=== PATIENT | female | born 1980 | race Caucasian/White ===

== ENCOUNTER 2018-07-31 14:31 | Inpatient (IN) | payer OTHER ==
[~2018-07-31] VITALS: Ht 154.9 cm; Wt 57.5 kg
[2018-07-31] MEDS ORDERED: XANA1TAB2 PO (14:46)
[2018-07-31] MEDS ORDERED: NS 1,000 ML IV ONE (15:45)
[2018-07-31] MEDS ORDERED: ONDANSETRON 4MG/2ML VIAL (J2405) IV ONE (15:45)
[2018-07-31 15:58] LABS: BASO % 0.1 % (0.0-1.0); HEMATOCRIT 42.8 % (36.0-47.0); HEMOGLOBIN 14.9 g/dl (12.0-15.5); LYMPH # 0.8 10^3/uL (1.5-4.5); MEAN CORPUSCULAR HEMOGLOBIN 33.3 pg (27.0-33.0); MEAN CORPUSCULAR HGB CONC 34.8 g/dl (32.0-36.5); MEAN CORPUSCULAR VOLUME 95.5 fl (80.0-96.0); MONO # 0.2 10^3/uL (0.0-0.8); MONO % 1.7 % (0.0-5.0); NEUTROPHILS # 8.1 10^3/uL (1.8-7.7); NEUTROPHILS % 88.8 % (36.0-66.0); PLATELET COUNT, AUTOMATED 291 10^3/uL (150-450); RED BLOOD COUNT 4.48 10^6/uL (4.00-5.40); WHITE BLOOD COUNT 9.2 10^3/uL (4.0-10.0)
[2018-07-31 16:33] LABS: HCG, SERUM QUALITATIVE NEGATIVE (NEGATIVE)
[2018-07-31 16:37] LABS: ALBUMIN 3.8 GM/DL (3.2-5.2); ALT/SGPT 22 U/L (12-78); BILIRUBIN,DIRECT 0.1 MG/DL (0.0-0.2); BILIRUBIN,TOTAL 0.5 MG/DL (0.2-1.0); BLOOD UREA NITROGEN 13 MG/DL (7-18); CALCIUM LEVEL 8.8 MG/DL (8.5-10.1); CARBON DIOXIDE LEVEL 20 MEQ/L (21-32); CHLORIDE LEVEL 107 MEQ/L (98-107); CK-MB VALUE MASS < 1.0 NG/ML (<3.6); CPK CREATINE PHOSPHOKINASE 55 U/L (26-192); CREATININE FOR GFR 0.71 MG/DL (0.55-1.30); GLOMERULAR FILTRATION RATE > 60.0 (>60); GLUCOSE, FASTING 128 MG/DL (70-100); LIPASE 188 U/L (73-393); MB/CK RELATIVE INDEX 1.82 (< OR =4); POTASSIUM SERUM 3.9 MEQ/L (3.5-5.1); SODIUM LEVEL 141 MEQ/L (136-145); TROPONIN I < 0.02 NG/ML (< 0.10)
[2018-07-31] MEDS ORDERED: PROMETHAZINE INJ 25 MG/ML VIAL (J2550) IV ONE (17:00)
[2018-07-31] MEDS ORDERED: METOCLOPRAMIDE INJ 10MG/2ML VIAL (J2765) IV ONE (19:45)
[2018-07-31] MEDS ORDERED: ISOVUE-370 76% 100ML VIAL (Q9967) As Ordered ONE (20:56)
[2018-07-31 21:21] LABS: AMPHETAMINES LEVEL URINE NEGATIVE (NEGATIVE); BARBITURATES URINE NEGATIVE (NEGATIVE); BENZODIAZEPINES URINE POSITIVE (NEGATIVE); CANNABINOIDS URINE POSITIVE (NEGATIVE); COCAINE METABOLITE URINE NEGATIVE (NEGATIVE); METHADONE URINE NEGATIVE (NEGATIVE); OPIATES URINE NEGATIVE (NEGATIVE); PHENCYCLIDINE URINE NEGATIVE (NEGATIVE)
[2018-07-31] MEDS ORDERED: ALPR0.5T3 PO (21:22)
[2018-07-31] MEDS ORDERED: ONDA4TAB5 PO (21:22)
[2018-07-31] MEDS ORDERED: HAIR1CHW2 PO (21:22)
--- NOTE | 2018-07-31 21:57 | REPVR ---
EXAM: CT Abdomen and Pelvis With Contrast EXAM DATE/TIME: 07/31/2018 9:06 PM CLINICAL HISTORY: 38 years old, female; Pain; Abdominal pain; Generalized; Additional info: Intractable vomiting; Intermittent pain TECHNIQUE: Axial computed tomography images of the abdomen and pelvis with intravenous contrast. All CT scans at this facility use at least one of these dose optimization techniques: automated exposure control; mA and/or kV adjustment per patient size (includes targeted exams where dose is matched to clinical indication); or iterative reconstruction. Coronal and sagittal reformatted images were created and reviewed. CONTRAST: 100 ml of ISOVUE 370 administered intravenously. COMPARISON: No relevant prior studies available. FINDINGS: Lower thorax: Clear lung bases. ABDOMEN: Liver: Normal appearing liver. Gallbladder and bile ducts: Surgical clips at the gallbladder fossa. The patient is post cholecystectomy. Pancreas: Normal pancreas. Spleen: Normal spleen. Adrenals: Normal adrenal glands. Kidneys and ureters: Normal kidneys. Stomach and bowel: The cecum is in the right pelvis. Normal appearing small bowel. Appendix: The appendix appears within the range of normal. PELVIS: Bladder: Normal urinary bladder. Reproductive: There is an IUD within the endometrial cavity of the uterus. There is a 1.8 CM collapsing cyst left ovary. 2 cm dominant cyst right ovary. ABDOMEN and PELVIS: Intraperitoneal space: There is no evidence of pneumoperitoneum. There is a small amount of free fluid within the pelvis. There is no evidence of free fluid in the abdomen. Bones/joints: No acute fracture. No dislocation. Soft tissues: Unremarkable. Vasculature: There is opacification of the SMV and opacification of the SMA. There is opacification of the aorta which appears intact and normal in size. Lymph nodes: There is no evidence of lymphadenopathy. IMPRESSION: 1.8 CM enhancing collapsing cyst left ovary. Trace fluid within the pelvis. Electronically signed by: Blake Cuba On 07/31/2018 21:57:06 PM
[2018-07-31] MEDS: NS 1,000 ML IV SCH (22:15)
[2018-07-31 22:28] LABS: URINE PREG TEST NEGATIVE (NEGATIVE)
--- NOTE | 2018-07-31 22:43 | HPEPDOC ---
[facility] Medical History & Physical Date of Admission Jul 31, 2018 Primary Care Physician: A Other Provider Dictating/admitting Judy Rene M.D. Attending Physician: BONILLA BATRES MD History and Physical CHIEF COMPLAINT: Nausea and vomiting 3 days HISTORY OF PRESENT ILLNESS: Patient is 38-year-old female with unknown medical history. No PCP. Presents with nausea and vomiting for the past 3 days. She describes vomitus contents initially continue ingested food and then became wate ry and more bilious now. She denies any blood. She denies any fever, no chills. She is sexually active with her , though with IUD for contraception. She was accompanied with her and reported that this has been going on intermittently and this is not her first episode. At interview, patient gives a positive history of use of cannabinoids. Denies illicit drugs, indulges occasionally in alcohol, smoke cigarettes, half a pack a day since age 14. Since her symptoms are unabating she decided to seek further medical attention. She denies any recent sick contacts. She denies any relation with recently ingested new foods. No change in her urinary habits. She denies any cough, shortness of breath, chest pain or palpitations. She denies any feelings of dizziness or headaches. PAST MEDICAL HISTORY: None PAST SURGICAL HISTORY: None SOCIAL HISTORY: Lives with in [place] has a son. Indulges occasionally in alcohol, smoke cigarettes, half a pack a day since age 14. Uses cannabinoids. FAMILY HISTORY: Father: Biological father unknown Mother: Cancer in maternal relation ALLERGIES: Please see below. REVIEW OF SYSTEMS: 12 point review of systems negative other than that described in the body of HPI HOME MEDICATIONS: Please see below. PHYSICAL EXAMINATION: VITAL SIGNS: Temperature 98.5, pulse 63, respiratory rate 16, blood pressure 145, pulse oximetry 100% on room air. GENERAL APPEARANCE: Patient seen, lying calmly in bed, not in any apparent distress. She is not pale, anicteric and afebrile HEENT: Atraumatic. Neck: Supple. LUNGS: Clear to auscultation bilaterally. CARDIOVASCULAR: S1 and 2 heard, no murmurs, rubs or gallops. ABDOMEN: Obese, soft, not tender, not distended. Bowel sounds normoactive. MUSCULOSKELETAL: Apparently within normal limits. EXTREMITIES: No pedal edema, 2+ bilateral pedal pulses noted. NEUROLOGICAL: Awake, alert, oriented 3. PSYCHIATRIC: Normal affect LABORATORY DATA: See below. IMAGING: None, will ask for CT abdomen without contrast EKG: Normal sinus rhythm MICROBIOLOGY: Please see below. ASSESSMENT: 38-year-old female with a known medical history. Comes in complaining of 3 days of nausea and vomiting. Exam is unremarkable, labs also unremarkable. EKG normal sinus rhythm. Patient gives a history of cannabinoids use, last use was yesterday. DIAGNOSIS: 1. Gastritis, etiology unknown, likely related to cannabinoids use. Will rule out . . PLAN: 1. I will admit patient to the medical floors under care of Dr. Batres. 2. We'll continue normal saline 100 mils per hour. 3. Will ask for CT abdomen, GI panel, U tox screen and test. 4. GI prophylaxis. Will hold pantoprazole for now until test result is obtained. 5. Patient will continue with IV Zofran 4 mg every 8 hours 6. DVT prophylaxis, TEDs. 7. Further treatment will be per patient's clinical course. Vital Signs Vital Signs Date Time Temp Pulse Resp B/P (MAP) Pulse Ox O2 Delivery O2 Flow Rate FiO2 07/31/18 19:35 98.5 63 16 145/77 (99) 100 Room Air Laboratory Data Labs 24H Laboratory Tests 2 07/31/18 15:51: Immature Granulocyte % (Auto) 0.4, White Blood Count 9.2, Red Blood Count 4.48, Hemoglobin 14.9, Hematocrit 42.8, Mean Corpuscular Volume 95.5, Mean Corpuscular Hemoglobin 33.3H, Mean Corpuscular Hemoglobin Concent 34.8, Red Cell Distribution Width 12.6, Platelet Count 291, Neutrophils (%) (Auto) 88.8H, Lymphocytes (%) (Auto) 9.0L, Monocytes (%) (Auto) 1.7, Eosinophils (%) (Auto) 0.0, Basophils (%) (Auto) 0.1, Neutrophils # (Auto) 8.1H, Lymphocytes # (Auto) 0.8L, Monocytes # (Auto) 0.2, Eosinophils # (Auto) 0.0, Basophils # (Auto) 0.0, Nucleated Red Blood Cells % (auto) 0.0, Anion Gap 14, Glomerular Filtration Rate > 60.0, Calcium Level 8.8, Aspartate Amino Transf (AST/SGOT) 13, Alanine Aminotransferase (ALT/SGPT) 22, Alkaline Phosphatase 52, Total Bilirubin 0.5, Direct Bilirubin 0.1, Total Creatine Kinase 55, Creatine Kinase MB < 1.0, Creatine Kinase MB Relative Index 1.82, Troponin I < 0.02, Total Protein 7.0, Albumin 3.8, Albumin/Globulin Ratio 1.19, Lipase 188, Human Chorionic Gonadotropin, Qual NEGATIVE 07/31/18 15:52: Urine Color YELLOW, Urine Appearance HAZY, Urine pH 6.0, Urine Specific [place] 1.026, Urine Protein 1+H, Urine Glucose (UA) NEGATIVE, Urine Ketones 2+H, Urine Blood NEGATIVE, Urine Nitrite NEGATIVE, Urine Bilirubin NEGATIVE, Urine Urobilinogen 0.2, Urine Leukocyte Esterase NEGATIVE, Urine WBC (Auto) 1, Urine RBC (Auto) 8H, Urine Hyaline Casts (Auto) 0, Urine Bacteria (Auto) NEGATIVE, Urine Squamous Epithelial Cells 8, Urine Mucus (Auto) SMALL, Urine Sperm (Auto) 07/31/18 20:30: Urine Amphetamines Screen NEGATIVE, Urine Benzodiazepines Screen POSITIVEH, Urine Opiates Screen NEGATIVE, Urine Methadone Screen NEGATIVE, Urine Barbiturates Screen NEGATIVE, Urine Phencyclidine Screen NEGATIVE, Urine Cocaine Metabolite Screen NEGATIVE, Urine Cannabinoids Screen POSITIVEH CBC/BMP Laboratory Tests 07/31/18 15:51 Red Blood Count 4.48, Mean Corpuscular Volume 95.5, Mean Corpuscular Hemoglobin 33.3 H, Mean Corpuscular Hemoglobin Concent 34.8, Red Cell Distribution Width 12.6, Neutrophils (%) (Auto) 88.8 H, Lymphocytes (%) (Auto) 9.0 L, Monocytes (%) (Auto) 1.7, Eosinophils (%) (Auto) 0.0, Basophils (%) (Auto) 0.1, Neutrophils # (Auto) 8.1 H, Lymphocytes # (Auto) 0.8 L, Monocytes # (Auto) 0.2, Eosinophils # (Auto) 0.0, Basophils # (Auto) 0.0 Home Medications Scheduled (Hair/Skin/Nails 1250-7.5-7.5 Mcg-mg-Unt) 1 Chw Chw, 1 CHW PO DAILY Scheduled PRN Alprazolam (Alprazolam) 0.5 Mg Tab, 0.5 MG PO BID PRN for ANXIETY Ondansetron HCl (Ondansetron HCl) 4 Mg Tab, 4 MG PO BID PRN for NAUSEA Allergies Coded Allergies: No Known Allergies (Unverified , 07/31/18) JUDY RENE MD Jul 31, 2018 22:43
[2018-08-01 00:05] VITALS: BP 144/76
[2018-08-01] MEDS: ONDANSETRON 4MG/2ML VIAL (J2405) IV PRN ×3 (00:22→19:15)
[2018-08-01 06:00] VITALS: BP 149/71
[2018-08-01 06:39] LABS: HEMATOCRIT 43.9 % (36.0-47.0); MEAN CORPUSCULAR HGB CONC 34.2 g/dl (32.0-36.5); MEAN CORPUSCULAR VOLUME 96.7 fl (80.0-96.0); PLATELET COUNT, AUTOMATED 279 10^3/uL (150-450); RED BLOOD COUNT 4.54 10^6/uL (4.00-5.40); WHITE BLOOD COUNT 9.4 10^3/uL (4.0-10.0)
[2018-08-01 07:09] LABS: ALBUMIN 3.7 GM/DL (3.2-5.2); ALT/SGPT 21 U/L (12-78); BILIRUBIN,TOTAL 0.3 MG/DL (0.2-1.0); BLOOD UREA NITROGEN 6 MG/DL (7-18); CARBON DIOXIDE LEVEL 24 MEQ/L (21-32); CHLORIDE LEVEL 106 MEQ/L (98-107); CREATININE FOR GFR 0.63 MG/DL (0.55-1.30); GLOMERULAR FILTRATION RATE > 60.0 (>60); GLUCOSE, FASTING 143 MG/DL (70-100); SODIUM LEVEL 140 MEQ/L (136-145); TOTAL PROTEIN 7.4 GM/DL (6.4-8.2)
[2018-08-01] MEDS: NS 1,000 ML IV SCH ×2 (08:15→20:24)
[2018-08-01] MEDS: HEPARIN SOD (PORCINE) 5000 UNITS/ML VIAL SQ SCH ×2 (08:38→20:23)
[2018-08-01] MEDS ORDERED: PANTOPRAZOLE 40MG INJ (PROTONIX) (C9113) IV SCH (09:00)
[2018-08-01] MEDS ORDERED: INFLUENZA QUADRIVALENT PF VACCINE 0.5ML SYRINGE (90686) IM ONE (09:00)
[2018-08-01 10:44] LABS: CK-MB VALUE MASS < 1.0 NG/ML (<3.6); CPK CREATINE PHOSPHOKINASE 28 U/L (26-192); MB/CK RELATIVE INDEX 3.57 (< OR =4); TROPONIN I < 0.02 NG/ML (< 0.10)
[2018-08-01 14:00] VITALS: BP 139/87
[2018-08-01] MEDS ORDERED: FLUCONAZOLE 100 MG TAB PO ONE (14:00)
[2018-08-01] MEDS: PANTOPRAZOLE 40MG INJ (PROTONIX) (C9113) IV SCH (14:28)
[2018-08-01] MEDS: PROMETHAZINE INJ 25 MG/ML VIAL (J2550) IV PRN ×2 (14:29→23:33)
[2018-08-01 15:48] LABS: CHLAMYDIA DNA AMPLIFICATION NEGATIVE (NEGATIVE); GC DNA AMPLIFICATION NEGATIVE (NEGATIVE)
--- NOTE | 2018-08-01 16:25 | IPN ---
DATE: 08/01/2018 SUBJECTIVE: The patient is seen and examined. Continued to have nausea and vomiting with any oral intake. Denies any chest pain, pressure or discomfort. Denies any abdominal pain. Had one spike of temperature. VITAL SIGNS: Maximum temperature (T-max) 100.7, T-current 99.4, pulse 61, respiratory rate 19, blood pressure 139/87, pulse oximetry 100% on room air. LABORATORY DATA: WBC 9.4, hemoglobin and hematocrit 15/43.9, platelets 279. Chemistry: Sodium 140, potassium 4, chloride 106, bicarbonate 24, BUN 6, creatinine 0.6, cardiac enzymes negative time two. test negative. GC and Chlamydia negative. Urine toxicology positive for benzodiazepine and cannabinoid. PHYSICAL EXAMINATION: GENERAL: Patient alert, comfortable, in no acute distress. HEENT: Normocephalic, atraumatic. PULMONARY: Bilaterally clear. CARDIAC: Regular, S1, S2. ABDOMEN: Soft, nontender, positive bowel sounds. EXTREMITIES: No clubbing, cyanosis, or edema. ASSESSMENT AND PLAN: This is a 38-year-old female patient with no significant past medical history but does report for the past 10 years the patient has intermittent episodes of nausea and vomiting, presented with nausea and vomiting. 1. Nausea and vomiting. Possible gastritis versus cannabinoid-induced cyclic vomiting syndrome. The patient has no history of diabetes. test has been negative. Pelvic examination is done. Gonorrhea (GC) and Chlamydia has been negative. Zofran, Phenergan, IV fluids have been ordered. We will consider consulting gastroenterology or general surgery for possible esophagogastroduodenoscopy (EGD) if the patient does not improve. Clear liquid diet. 2. Vaginal candidiasis. One dose of Diflucan has been given. 3. Gastroesophageal reflux disease (GERD). Continue proton pump inhibitor (PPI). 4. Deep vein thrombosis (DVT) prophylaxis. Heparin subcutaneous. DISPOSITION: Pending clinical improvement. Consider further workup if not improved.
[2018-08-01 22:00] VITALS: BP 159/89
[2018-08-02] MEDS: ONDANSETRON 4MG/2ML VIAL (J2405) IV PRN ×2 (02:05→12:07)
[2018-08-02] MEDS: NS 1,000 ML IV SCH (05:08)
[2018-08-02] MEDS: PROMETHAZINE INJ 25 MG/ML VIAL (J2550) IV PRN (05:08)
[2018-08-02 06:00] VITALS: BP 154/86
[2018-08-02 06:11] LABS: HEMATOCRIT 41.5 % (36.0-47.0); HEMOGLOBIN 14.3 g/dl (12.0-15.5); MEAN CORPUSCULAR HEMOGLOBIN 32.3 pg (27.0-33.0); MEAN CORPUSCULAR HGB CONC 34.5 g/dl (32.0-36.5); MEAN CORPUSCULAR VOLUME 93.7 fl (80.0-96.0); PLATELET COUNT, AUTOMATED 284 10^3/uL (150-450); RED BLOOD COUNT 4.43 10^6/uL (4.00-5.40); WHITE BLOOD COUNT 9.5 10^3/uL (4.0-10.0)
[2018-08-02 06:36] LABS: BLOOD UREA NITROGEN 6 MG/DL (7-18); CALCIUM LEVEL 8.3 MG/DL (8.5-10.1); CARBON DIOXIDE LEVEL 25 MEQ/L (21-32); CHLORIDE LEVEL 102 MEQ/L (98-107); CREATININE FOR GFR 0.58 MG/DL (0.55-1.30); GLOMERULAR FILTRATION RATE > 60.0 (>60); GLUCOSE, FASTING 125 MG/DL (70-100); MAGNESIUM LEVEL 1.9 MG/DL (1.8-2.4); POTASSIUM SERUM 3.1 MEQ/L (3.5-5.1); SODIUM LEVEL 137 MEQ/L (136-145)
[2018-08-02] MEDS: KCL 40MEQ in NS 1000ML 1,000 ML IV SCH ×2 (08:22→17:11)
[2018-08-02] MEDS: PANTOPRAZOLE 40MG INJ (PROTONIX) (C9113) IV SCH (08:22)
[2018-08-02] MEDS: HEPARIN SOD (PORCINE) 5000 UNITS/ML VIAL SQ SCH ×2 (08:22→21:22)
[2018-08-02 09:00] LABS: ALBUMIN 3.4 GM/DL (3.2-5.2); ALT/SGPT 42 U/L (12-78); BILIRUBIN,DIRECT 0.3 MG/DL (0.0-0.2); BILIRUBIN,TOTAL 0.8 MG/DL (0.2-1.0); C REACTIVE PROTEIN QUANTITATIV < 0.30 MG/DL (0.00-0.30); TOTAL PROTEIN 6.7 GM/DL (6.4-8.2)
--- NOTE | 2018-08-02 09:20 | REP ---
Chest two views HISTORY: Cough Comparison: None The lungs are clear. The heart is normal in size. The pulmonary vasculature is normal in appearance. The bony structure is intact. IMPRESSION: No acute disease. Electronically Signed by Chaz Nova MD 08/02/2018 09:11 A
[2018-08-02] MEDS: ALPRAZolam 0.5 MG TAB PO PRN ×2 (13:27→22:18)
[2018-08-02 14:00] VITALS: BP 150/81
--- NOTE | 2018-08-02 14:11 | REP ---
Right upper quadrant sonography: History: Right upper quadrant pain, fever, nausea and vomiting. Comparison CT study March 31, 2019. Findings: Scanning through right upper quadrant of the abdomen is performed. The gallbladder is surgically absent. Common bile duct is normal measuring 0.6 cm in greatest diameter. There is a 1.2 x 0.7 x 0.8 cm hemangioma near the periportal region of the liver. No other focal liver lesion is seen. No pancreatic abnormality is observed. There is no evidence of ascites or right renal abnormality. The right kidney measures 12.1 x 5.1 x 5.4 cm. Impression: A 1.2 cm hemangioma in the liver. Post cholecystectomy. Otherwise negative. Electronically Signed by Hay Benavides MD 08/02/2018 07:39 P
[2018-08-02] MEDS ORDERED: LR 1,000 ML IV ONE (14:45)
[2018-08-02] MEDS: ACETAMINOPHEN TAB 650MG DOSE (2X325MG) PO PRN ×2 (14:58→19:49)
[2018-08-02 15:03] LABS: BLOOD UREA NITROGEN 7 MG/DL (7-18); CALCIUM LEVEL 8.8 MG/DL (8.5-10.1); CARBON DIOXIDE LEVEL 23 MEQ/L (21-32); CHLORIDE LEVEL 103 MEQ/L (98-107); GLOMERULAR FILTRATION RATE > 60.0 (>60); GLUCOSE, FASTING 100 MG/DL (70-100); POTASSIUM SERUM 3.9 MEQ/L (3.5-5.1); SODIUM LEVEL 136 MEQ/L (136-145)
[2018-08-02] MEDS: METOCLOPRAMIDE INJ 10MG/2ML VIAL (J2765) IV SCH ×2 (15:55→22:18)
--- NOTE | 2018-08-02 17:53 | IPNPDOC ---
Text Note Date of Service The patient was seen on 08/02/18. NOTE Continue to reported n/v. fever reported by nursing stable. n/v improved with hot shower. cough productive of clear sputum PHYSICAL EXAMINATION: GENERAL: Patient alert, comfortable, in no acute distress. HEENT: Normocephalic, atraumatic. PULMONARY: Bilaterally clear. CARDIAC: Regular, S1, S2. ABDOMEN: Soft, nontender, positive bowel sounds. EXTREMITIES: No clubbing, cyanosis, or edema. ASSESSMENT AND PLAN: This is a 38-year-old female patient with no significant past medical history but does report for the past 10 years the patient has intermittent episodes of nausea and vomiting, presented with nausea and vomiting. 1. Nausea and vomiting. Possible gastritis versus cannabinoid-induced cyclic vomiting syndrome. The patient has no history of diabetes. test has been negative. Gonorrhea (GC) and Chlamydia has been negative. reglan , IV fluids have been ordered. GI consulted for possible EGD. Clear liquid diet. 2. fever of unknown origin. CRP neg, no WBC elevation. possible 2/2 to viral bronchitis. cxr neg, f/u cultures. will monitor,. respiratory panel neg. 3. Vaginal candidiasis. One dose of Diflucan has been given. 4. Gastroesophageal reflux disease (GERD). Continue proton pump inhibitor (PPI). 5. Deep vein thrombosis (DVT) prophylaxis. Heparin subcutaneous. DISPOSITION: Pending clinical improvement. GI consult RUMA,Kameron, I+O VS, Kameron, I+O Laboratory Tests 08/02/18 05:44 Red Blood Count 4.43, Mean Corpuscular Volume 93.7, Mean Corpuscular Hemoglobin 32.3, Mean Corpuscular Hemoglobin Concent 34.5, Red Cell Distribution Width 12.3 08/02/18 14:09 Calcium Level 8.8 Vital Signs Date Time Temp Pulse Resp B/P (MAP) Pulse Ox O2 Delivery O2 Flow Rate FiO2 08/02/18 14:00 100.0 61 18 150/81 (104) 100 Room Air I&O- Last 24 Hours up to 6 AM 08/02/18 05:59 Intake Total 160 ml Output Total 2300 ml Balance -2140 ml BONILLA BATRES MD Aug 02, 2018 17:53
--- NOTE | 2018-08-02 18:46 | CR.PDOC ---
General Date of Consultation: Aug 02, 2018 Referring Provider: BONILLA BATRES MD Consultation Primary physician/ hospitalist: Dr. Batres Reason for consult: Persistent vomiting. HPI: 38-year-old female patient with no chronic medical comorbidities, h/o cholecystectomy 9 years ago, admitted to hospital for persistent nausea and vomiting and unable to tolerate anything by mouth. GI was consulted for the same. Patient reports having cyclical episodes of nausea with vomiting, no precipitating event, episodes happening at least 2-3 times every year for the past 9 years, and recently worsening with at least 1-2 episodes every month. Patient reports the episode started with severe nausea and recurrent vomiting and inability to tolerate anything by mouth, which lasts for 3-7 days. Patient does report use of marijuana for the past 9 years but reports that the nausea started before that. (Patient is not clear about the amount of marijuana usage). Patient also reports associated abdominal pain from recurrent vomiting. Off note: Patient was noted to have episodes of fever during this admission, and she reports having cough with white phlegm and history of dyspareunia. ( prior h/o IUD). Pertinent negative GI symptoms: Patient denies diarrhea, early satiety or unintentional weight loss. No history of hematemesis, melena or hematochezia. Patient reports regular bowel movements. Review of Systems: GI: as stated above CVS: No chest pain, No palpitations, No leg swelling. RS: No Shortness of breath, No Wheezing, has cough with white phlegm. DOUBLE BACK OPERATOR: No dizziness, No motor weakness, No sensory problems Hematology: No bruising, No gum bleeding, Musculoskeletal: No joint pain, ambulating well. Skin: No rash : No hematuria, No burning sensation of the urine ENT: No ear discharge/ pain, No dysphagia. Eyes: No photophobia. Home medications: reviewed. Antithrombotic agents -none Medical h/o: As above. Surgical h/o: None on abdomen. Social h/o: Alcohol-denies, tobacco-denies, IVDA/ drugs-denies IVDA, but uses marijuana everyday.. Family h/o of GI cancers -denies any cancer. Prior Endoscopies: --- EGD -had many years ago, normal as per patient. --- Colonoscopy -none Prior GI evaluation: None in [facility] Exam: Vitals: reviewed General: Alert and oriented x 3, not in distress HEENT: NO pallor, no icterus. Normal oropharynx, NO cervical lymph nodes. Chest: symmetric with bilateral clear air entry, CVS: S1, S2 heard, normal, no murmurs . Abdomen: non-distended, no surgical scars, soft, non-tender, no palpable masses, normal bowel sounds heard. Rectal exam: Patient refused . Extremities: no pedal edema, pulses palpable. DOUBLE BACK OPERATOR: no focal motor or sensory deficits. Moves all extremities Skin: no rash. Labs: reviewed. Imaging tests: reviewed ( Note: As per hospitalist -- patient had pelvic exam - noted whitish discharge but negative GC and No signs of PID). Impression: -- Recurrent cyclical episodes of vomiting with nausea and abdominal pain relat ed to vomiting -- DDx-- Likely Marijuana related emesis syndrome ( patient reported vomiting getting better with hot showers), vs Idiopathic gastroparesis vs PUD. -- Fever of unknown origin -- s/p CT abdomen - no intraabdominal pathology and US abdomen 1.2 cm liver hemangioma, normal CBD , patient having cough and h/o Dyspareunia -- DDx-- unlikely GI source of sepsis r/o Bronchitis vs PID/UTI. Recommendations: - Patient educated about the test results, possible differential diagnoses and All questions answered. - Septic work up as per primary team. (As per discussion with Hospitalist patient already being worked up for the above). - IV hydration - NPO or clear liquid diet as tolerated for now and keep NPO tomorrow for planned procedure. - Give IV reglan 1-2 times daily. - Continue IV Pantoprazole for now. - Will schedule for EGD tomorrow to evaluate for PUD or gastric outlet obstruction. - The procedure, indications, risks (bleeding, perforation, infection, hypotension, respiratory depression, allergy, need for endotracheal intubation, surgery, colostomy, cardiac arrest, even ), benefits, limitations (e.g., missing a lesion), and all other alternatives (including no intervention) were explained to the patient who understood and agreed for the procedure. Plan of care discussed with patient and primary team. Patient verbalized understanding and agreed with the plan. Allergies Coded Allergies: No Known Allergies (Unverified , 07/31/18) Home Medications Scheduled (Hair/Skin/Nails 1250-7.5-7.5 Mcg-mg-Unt) 1 Chw Chw, 1 CHW PO DAILY, (Reported) Scheduled PRN Alprazolam (Alprazolam) 0.5 Mg Tab, 0.5 MG PO BID PRN for ANXIETY, (Reported) Ondansetron HCl (Ondansetron HCl) 4 Mg Tab, 4 MG PO BID PRN for NAUSEA, (Reported) JELLY PATEL MD Aug 02, 2018 18:46
[2018-08-02] MEDS ORDERED: SUMAtriptan SUCCINATE 25 MG TAB PO ONE (21:00)
[2018-08-02 22:00] VITALS: BP 155/86
[2018-08-03 06:00] VITALS: BP 96/62
[2018-08-03 06:27] LABS: HEMATOCRIT 45.3 % (36.0-47.0); HEMOGLOBIN 15.9 g/dl (12.0-15.5); MEAN CORPUSCULAR HEMOGLOBIN 33.1 pg (27.0-33.0); MEAN CORPUSCULAR HGB CONC 35.1 g/dl (32.0-36.5); MEAN CORPUSCULAR VOLUME 94.4 fl (80.0-96.0); PLATELET COUNT, AUTOMATED 300 10^3/uL (150-450); WHITE BLOOD COUNT 8.3 10^3/uL (4.0-10.0)
[2018-08-03] MEDS: ACETAMINOPHEN TAB 650MG DOSE (2X325MG) PO PRN ×2 (06:38→20:55)
[2018-08-03] MEDS: METOCLOPRAMIDE INJ 10MG/2ML VIAL (J2765) IV SCH ×2 (06:39→18:08)
[2018-08-03] MEDS: ALPRAZolam 0.5 MG TAB PO PRN ×2 (06:39→20:55)
[2018-08-03 06:40] LABS: HEMOGLOBIN A1c 5.4 %
[2018-08-03] MEDS: KCL 40MEQ in NS 1000ML 1,000 ML IV SCH ×2 (06:41→13:11)
[2018-08-03 06:49] LABS: BLOOD UREA NITROGEN 6 MG/DL (7-18); CALCIUM LEVEL 8.4 MG/DL (8.5-10.1); CARBON DIOXIDE LEVEL 25 MEQ/L (21-32); CHLORIDE LEVEL 102 MEQ/L (98-107); CREATININE FOR GFR 0.59 MG/DL (0.55-1.30); GLOMERULAR FILTRATION RATE > 60.0 (>60); GLUCOSE, FASTING 104 MG/DL (70-100); MAGNESIUM LEVEL 2.2 MG/DL (1.8-2.4); POTASSIUM SERUM 3.7 MEQ/L (3.5-5.1); SODIUM LEVEL 136 MEQ/L (136-145)
[2018-08-03] MEDS: HEPARIN SOD (PORCINE) 5000 UNITS/ML VIAL SQ SCH ×2 (08:32→20:55)
[2018-08-03] MEDS: PANTOPRAZOLE 40MG INJ (PROTONIX) (C9113) IV SCH (08:32)
[2018-08-03] MEDS ORDERED: LIDOCAINE 2% INJ 100 MG/5 ML SDV (FOR ANES.) As Ordered ONE (12:04)
[2018-08-03] MEDS ORDERED: PROPOFOL 200 MG/20 ML VIAL As Ordered ONE (12:04)
[2018-08-03] MEDS ORDERED: fentaNYL 100 MCG/2 ML INJECTION (J3010) As Ordered ONE (12:04)
--- NOTE | 2018-08-03 12:32 | ROOR ---
Patient Name: Cheryl Tapia Procedure Date: 08/03/2018 10:36 AM Date of : 1980 Age: 38 Room: Main OR Gender: Female Note Status: Finalized Procedure: Upper GI endoscopy Indications: Persistent vomiting of unknown cause Providers: True Ron MD Referring MD: Rosita Montano Md Requesting Provider: Medicines: Monitored Anesthesia Care Complications: No immediate complications. Procedure: Pre-Anesthesia Assessment: - Prior to the procedure, a History and Physical was performed, and patient medications and allergies were reviewed. The patient is competent. The risks and benefits of the procedure and the sedation options and risks were discussed with the patient. All questions were answered and informed consent was obtained. Patient identification and proposed procedure were verified by the physician, the nurse and the anesthesiologist in the procedure room. Mental Status Examination: alert and oriented. Airway Examination: normal oropharyngeal airway and neck mobility. Respiratory Examination: clear to auscultation. CV Examination: normal. Prophylactic Antibiotics: The patient does not require prophylactic antibiotics. Prior Anticoagulants: The patient has taken no previous anticoagulant or antiplatelet agents. ASA Grade Assessment: II - A patient with mild systemic disease. After reviewing the risks and benefits, the patient was deemed in satisfactory condition to undergo the procedure. The anesthesia plan was to use monitored anesthesia care (MAC). Immediately prior to administration of medications, the patient was re-assessed for adequacy to receive sedatives. The heart rate, respiratory rate, oxygen saturations, blood pressure, adequacy of pulmonary ventilation, and response to care were monitored throughout the procedure. The physical status of the patient was re-assessed after the procedure. The Endoscope was introduced through the mouth, and advanced to the second part of duodenum. The upper GI endoscopy was accomplished without difficulty. The patient tolerated the procedure well. Findings: The examined esophagus was normal. The Z-line was regular and was found 37 cm from the incisors. Patchy mild inflammation characterized by erythema and granularity was found in the gastric body and in the gastric antrum. Biopsies were taken with a cold forceps for Helicobacter pylori testing. Verification of patient identification for the specimen was done by the physician and nurse using the patient's name, date and medical record number. Estimated blood loss was minimal. The duodenal bulb and second portion of the duodenum were normal. Biopsies for histology were taken with a cold forceps for evaluation of celiac disease. Impression: - Normal esophagus. - Z-line regular, 37 cm from the incisors. - Gastritis. Biopsied. - Normal duodenal bulb and second portion of the duodenum. Biopsied. Recommendation: - Patient has a contact number available for emergencies. The signs and symptoms of potential delayed complications were discussed with the patient. Return to normal activities tomorrow. Written discharge instructions were provided to the patient. - Advance diet as tolerated. - Continue present medications. - Await pathology results. - If Biopsy shows H. pylori will need therapy with antibiotic course.. - Return to primary care physician. True Ron MD True Ron MD 08/03/2018 12:32:18 PM This report has been signed electronically. Number of Addenda: 0 Note Initiated On: 08/03/2018 10:36 AM Estimated Blood Loss: Estimated blood loss was minimal.
[2018-08-03] MEDS ORDERED: PERCOCET 5MG/325MG TAB PO PRN (12:45)
[2018-08-03] MEDS ORDERED: ONDANSETRON 4MG/2ML VIAL (J2405) IV PRN (12:45)
[2018-08-03] MEDS ORDERED: LR 1,000 ML IV SCH (12:45)
[2018-08-03 14:00] VITALS: BP 124/78
[2018-08-03] MEDS ORDERED: metroNIDAZOLE 500 MG in APPROPRIATE DILUENT 1 EA IV SCH (14:00)
--- NOTE | 2018-08-03 17:50 | IPNPDOC ---
Text Note Date of Service The patient was seen on 08/03/18. NOTE Continue to reported n/v. fever reported by nursing. n/v improved with hot shower. cough productive of clear sputum PHYSICAL EXAMINATION: GENERAL: Patient alert, comfortable, in no acute distress. HEENT: Normocephalic, atraumatic. PULMONARY: Bilaterally clear. CARDIAC: Regular, S1, S2. ABDOMEN: Soft, nontender, positive bowel sounds. EXTREMITIES: No clubbing, cyanosis, or edema. ASSESSMENT AND PLAN: This is a 38-year-old female patient with past medical history of questionable porphyria but does report for the past 10 years the patient has intermittent episodes of nausea and vomiting, presented with nausea and vomiting. 1. Nausea and vomiting. Possible gastritis versus cannabinoid-induced cyclic vomiting syndrome vs acute intermittent porphria. The patient has no history of diabetes a1c neg. test has been negative. Gonorrhea (GC) and Chlamydia has been negative. reglan , IV fluids have been ordered. GI consulted for possible EGD. full liquid, urine study for workup of acute intermittent porphyria. gastric emptying study 2. fever of unknown origin. CRP neg, no WBC elevation. possible 2/2 to viral bronchitis. cxr neg, f/u cultures. will monitor,. respiratory panel neg. ID consulted 3. Bacterial vaginosis. Given flagy further rec as per ID. 4. Gastroesophageal reflux disease (GERD). Continue proton pump inhibitor (PPI). 5. Deep vein thrombosis (DVT) prophylaxis. Heparin subcutaneous. DISPOSITION: Pending clinical improvement. Workup for acute intermittent porphyria, gastric emptying study. ID consult. VS,Kameron, I+O VS, [place], I+O Laboratory Tests 08/03/18 06:09 Red Blood Count 4.80, Mean Corpuscular Volume 94.4, Mean Corpuscular Hemoglobin 33.1 H, Mean Corpuscular Hemoglobin Concent 35.1, Red Cell Distribution Width 12.3, Calcium Level 8.4 L Vital Signs Date Time Temp Pulse Resp B/P (MAP) Pulse Ox O2 Delivery O2 Flow Rate FiO2 08/03/18 14:00 99.4 70 21 124/78 (93) 97 Room Air I&O- Last 24 Hours up to 6 AM 08/03/18 06:00 Intake Total 1680 ml Output Total 1250 ml Balance 430 ml BONILLA BATRES MD Aug 03, 2018 17:50
--- NOTE | 2018-08-03 20:11 | CR ---
DATE OF CONSULTATION: 08/03/2018 REQUESTING PROVIDER: Dr. Rosita Montano REASON FOR CONSULTATION: Fever of unknown origin. Ms. Tapia is a very pleasant 38-year-old [place] female who has been having persistent episodes of nausea and vomiting for least 10 years, since the removal of her gallbladder. She also experiences back pain and chills as well as joint pains when these episodes occur. She states that she was hospitalized right after her gallbladder surgery for about 2 weeks due to intractable nausea and vomiting and then had another attack approximately a year later. As time has gone on, these attacks have gotten more frequent to the point where they will happen once or twice a month. They last for about 3-5 days, where she will have chills, vomiting, extreme nausea, and severe anxiety about whether or not she will throw up. This started to affect her activities of daily living. She states she can no longer go out to restaurants with her , as she is always anxious about when an attack will occur. During this present illness, she had been coughing for approximately a week, as her 2-year-old son has been coughing as well. This current attack of nausea and vomiting began 3 days ago, and her generalized achiness got so bad that she told her she could not breathe. In response, he called an ambulance, and she was brought to [facility]. She states that she has had multiple emergency room (ER) visits over the last few years, where she will go in complaining of nausea and vomiting, get medications and intravenous (IV) fluids, and then be sent home. This is the first time she has been hospitalized for this. She says that she was diagnosed with porphyria years ago. Is unsure of which type she has and does not know how she was diagnosed. She also says that she was diagnosed with H. pylori in the past and was given medication for this, which she never took. She does admit to smoking marijuana, however, says that she started smoking marijuana in order to stimulate her appetite after the cycles of nausea and vomiting began, when she started developing anxiety about eating. She also does smoke cigarettes and will binge drink on the weekends with her and their family. Her medical care has been somewhat disjointed, as she travels back and forth the [place], where she has family, while her is away on training missions. She denies any skin lesions, blistering, rashes, joint swelling, vision changes, or psychiatric symptoms besides severe anxiety about eating. REVIEW OF SYSTEMS: CONSTITUTIONAL: Positive for fevers, chills and inability to gain weight secondary to nausea and vomiting, decreased appetite. HEENT: Denies vision changes, headaches, double vision, epistaxis, runny nose, sinus pain, tinnitus or odynophagia. CARDIOVASCULAR: Denies palpitations, chest pain, orthopnea, or edema. RESPIRATORY: Positive for cough. Negative for sputum production, hemoptysis, wheezing, shortness of breath. GASTROINTESTINAL: Positive for nausea and vomiting as well as anorexia and hemorrhoids. Due to her hemorrhoid, she does admit to bright red blood per rectum on the toilet paper when she wipes, but she denies hematochezia, melena, tenesmus, or obstipation.. She denies hematemesis, diarrhea, constipation, bloating, or difficulty swallowing. She denies abdominal pain but states that her abdomen is very sensitive and uncomfortable. GENITOURINARY: Denies vaginal discharge, dysuria, hematuria, nocturia, polyuria, incontinence. She does have the Paragard IUD as contraception. MUSCULOSKELETAL: Positive for joint achiness but negative for joint swelling, decreased range of motion, or stiffness. She also admits to generalized achiness in her muscles as well. INTEGUMENTARY: Denies pruritus, rashes, dry lesions, wounds, incisions, or eczema and NEUROLOGIC: Denies any changes to sight, smell, hearing, taste, seizures, headaches, paresthesias, or numbness. PSYCHIATRIC: Positive for anxiety. Denies paranoia, anhedonia, episodes of pratibha, or changes in personality. ENDOCRINE: Denies mood swings, tremors, diarrhea, sweaty episodes, constipation, or dry skin. She also denies polydipsia or polyuria. HEMATOLOGIC: Positive for using easy bruising but denies purpura, petechiae, or easy bleeding. LYMPHATIC: Denies any new lumps or bumps anywhere. PAST MEDICAL HISTORY: 1. H. pylori. 2. Porphyria, type unknown. PAST SURGICAL HISTORY: In 2008 she had her gallbladder removed secondary to gallstones. FAMILY HISTORY: Father's side is unknown. In her mother's side of the family, she had an aunt who from pancreatic cancer at age 57. Her on uncle has had colon cancer twice, and her mother had skin cancer, type unknown. SOCIAL HISTORY: She lives with her and 2-year-old son here in [place]. As stated in history of present illness (HPI), she does binge drink alcohol on the weekends and smokes marijuana. She also smokes cigarettes, about half pack a day since the age of 14. She travels frequently and originally is from [place]. She immigrated at age 12. Her and she travel back and forth the [place] quite frequently, and she has also recently been to the [facility] [place] and [place] within the last 5 years. ALLERGIES: None. CURRENT MEDICATIONS: - metronidazole 500 mg intravenous (IV) every 12 hour - Reglan 5 mg every 12 hours IV - Xanax 0.5 mg twice a day as needed by mouth for anxiety - heparin 5000 units every 12 hours subcutaneously - Protonix 40 mg IV every 24 hours - Tylenol 650 mg every 4 hours as needed by mouth for mild pain or fever. PHYSICAL EXAMINATION: VITAL SIGNS: Temperature 99.4, pulse 70, respiratory rate 21, blood pressure 124/78, pulse oximetry 97% on room air. GENERAL: A very pleasant [place] female, sitting upright in bed in no apparent distress. HEENT: Atraumatic, normocephalic. Mucous membranes are moist. There are no ulcers inside the mouth. The patient has her own teeth, and dentition is fair. Posterior pharynx is free of exudate or erythema. NECK: No lymphadenopathy is appreciated. Neck is supple. There are no masses. LUNGS: Clear to auscultation bilaterally. No wheezes, rhonchi, or rales. HEART: Regular rate and rhythm. No murmurs, gallops, or rubs. ABDOMEN: Normoactive bowel sounds. Stretch beasley from previous are noted. She has mild discomfort to palpation of both upper quadrants, which is less with palpation of the bilateral lower quadrants. There is no suprapubic tenderness. BACK: No costovertebral angle (CVA) tenderness bilaterally. EXTREMITIES: No clubbing, cyanosis, or edema. There is no joint swelling. SKIN: The patient has some irritation from tape from her previous IV site, otherwise no bruises or rashes are noted. Skin integrity is intact. PSYCHIATRIC: The patient has a normal affect but quickly can become tearful and anxious. NEUROLOGIC: The patient is alert and oriented times four. She has no diminished sensation bilaterally. Muscle strength is 5/5 in all four extremities. There are no focal neurological deficits. Cranial nerves II-XII are grossly intact. LABORATORY DATA: CBC: WBC 8.3, hemoglobin 15.9, hematocrit 45.3, platelets 300. Chemistry: Sodium 136, potassium 3.7, chloride 102, carbon dioxide 25, BUN 6,, creatinine 0.59, fasting glucose 104, hemoglobin A1c 5.4, calcium 8.4, magnesium 2.2. Toxicology from 07/31/2018 was positive for benzodiazepines and cannabinoids. Urine from 07/31/2018 was positive for 1+ protein and 2+ glucose as well as 8 urine RBC. Serology: Negative for chlamydia, gonorrhea, and HIV Microbiology: Blood cultures times two were negative. Culture from the endocervix showed Gardnerella vaginalis. Respiratory panel negative. Sputum culture pending; however, the Gram stain showed gram-positive cocci in pairs, chains, and clusters as well as a few gram-positive rods. IMAGING STUDIES: Abdomen and pelvis CT from 07/31/2018 showed a 1.8 cm enhancing collapsing cyst on left ovary with trace fluid within the pelvis. Chest x-ray from 08/02/2018 showed no acute disease. Abdominal ultrasound from 08/02/2018 showed a 1.2 cm hemangioma in the liver post cholecystectomy, otherwise negative. ASSESSMENT AND PLAN: This is a 38-year-old [facility] female who has been having periodic fevers, chills, nausea, and back pain. She was taken to the operating room (OR) this morning by Dr. Ron for upper endoscopy. Pathology from biopsies is pending right now; however, he did find gastritis in the gastric body and antrum. We should rule out periodic fever syndrome. With the patient having an alleged history of porphyria diagnosis, we have ordered a 24-hour urine porphyrins and will workup for porphyria. I have also ordered a sedimentation rate for the morning, as the patient's C-reactive protein (CRP) was normal. Incidentally, she is not having any vaginal symptoms, so her bacterial vaginosis does not need to be treated. This was discussed with the primary care team, and Flagyl will be discontinued, as this can contribute to nausea as well. Thank you for involving us in the care of Ms. Tapia. We will continue to follow her. My faculty preceptor for this patient encounter was physically present during the encounter and was fully available. All aspects of the patient interview, examination, medical decision making process, and medical care plan development were reviewed and approved by the faculty preceptor. The faculty preceptor is aware and concurs with the plan as stated in the body of this note and will attest to such by his/her co-signature. [place]
[2018-08-03 22:00] VITALS: BP 125/72
[2018-08-04] MEDS ORDERED: metroNIDAZOLE 500 MG in APPROPRIATE DILUENT 1 EA IV SCH (02:00)
[2018-08-04 06:00] VITALS: BP 152/88
[2018-08-04] MEDS: KCL 40MEQ in NS 1000ML 1,000 ML IV SCH ×2 (06:06→12:17)
[2018-08-04] MEDS: METOCLOPRAMIDE INJ 10MG/2ML VIAL (J2765) IV SCH ×2 (06:06→21:52)
[2018-08-04 07:02] LABS: HEMATOCRIT 42.8 % (36.0-47.0); HEMOGLOBIN 15.1 g/dl (12.0-15.5); MEAN CORPUSCULAR HEMOGLOBIN 32.6 pg (27.0-33.0); MEAN CORPUSCULAR HGB CONC 35.3 g/dl (32.0-36.5); MEAN CORPUSCULAR VOLUME 92.4 fl (80.0-96.0); PLATELET COUNT, AUTOMATED 283 10^3/uL (150-450); RED BLOOD COUNT 4.63 10^6/uL (4.00-5.40); WHITE BLOOD COUNT 7.4 10^3/uL (4.0-10.0)
[2018-08-04 07:12] LABS: BLOOD UREA NITROGEN 6 MG/DL (7-18); CALCIUM LEVEL 8.5 MG/DL (8.5-10.1); CARBON DIOXIDE LEVEL 25 MEQ/L (21-32); CHLORIDE LEVEL 103 MEQ/L (98-107); CREATININE FOR GFR 0.59 MG/DL (0.55-1.30); GLOMERULAR FILTRATION RATE > 60.0 (>60); GLUCOSE, FASTING 101 MG/DL (70-100); MAGNESIUM LEVEL 2.2 MG/DL (1.8-2.4); POTASSIUM SERUM 3.7 MEQ/L (3.5-5.1); SODIUM LEVEL 135 MEQ/L (136-145)
[2018-08-04 07:23] LABS: ERYTHROCYTE SEDIMENTATION RATE 7 mm/hr (0-20)
[2018-08-04] MEDS ORDERED: ONDANSETRON 4MG/2ML VIAL (J2405) IV PRN (08:15)
[2018-08-04 09:52] LABS: IMMUNOGLOBULIN G 821 MG/DL (681-1648); IMMUNOGLOBULIN M 96.1 MG/DL (40-230)
[2018-08-04] MEDS: ACETAMINOPHEN TAB 650MG DOSE (2X325MG) PO PRN (09:57)
[2018-08-04] MEDS: ALPRAZolam 0.5 MG TAB PO PRN (10:02)
[2018-08-04] MEDS: HEPARIN SOD (PORCINE) 5000 UNITS/ML VIAL SQ SCH ×2 (12:16→21:52)
[2018-08-04] MEDS: FLUoxetine 10 MG CAP PO SCH (12:16)
[2018-08-04] MEDS: PANTOPRAZOLE 40MG INJ (PROTONIX) (C9113) IV SCH (12:17)
--- NOTE | 2018-08-04 12:34 | REP ---
GASTRIC EMPTYING STUDY: 08/04/2018 CLINICAL HISTORY: Nausea, vomiting. Long history abdominal pain and tenderness with early satiety, bloating, reflux and heartburn. Had upper endoscopy yesterday. COMPARISON: CT abdomen pelvis 07/31/2018. TECHNIQUE: The patient received 1.05 mCi technetium 99m sulfur colloid in two scrambled eggs with pulses of water. The technologist notes indicate the patient had severe headache after eating and vomited most everything she had ingested just as soon as she set up at the completion of her examination. FINDINGS: Sequential 2-minute images in anterior posterior projections for 90 minutes showed filling of the stomach and no definite peristalsis into the small intestine. I do not see visible reflux on these images. With region of interest drawn about the stomach, gastric emptying was calculated by a semi automated method. The gastric emptying at 90 minutes is 0%. The normal t-1/2 for gastric emptying is 90 minutes. IMPRESSION: 1. Profound gastroparesis or gastric outlet obstruction. No emptying of the stomach contents over 90 minutes of observation after ingesting two scrambled eggs and 12 ounces of water. No reflux observed during this period of imaging. She vomited her gastric contents after the exam was completed when she sat up. Electronically Signed by Kasi Conklin MD 08/04/2018 01:17 P
[2018-08-04 14:00] VITALS: BP 160/101
[2018-08-04] MEDS ORDERED: D5W/0.9% SODIUM CHLORIDE 1,000 ML IV ONE (16:30)
[2018-08-04] MEDS: D5W/0.9% SODIUM CHLORIDE 1,000 ML IV SCH (16:40)
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
--- NOTE | 2018-08-04 19:48 | IPNPDOC ---
Text Note Date of Service The patient was seen on 08/04/18. NOTE Continue to reported n/v. n/v improved with hot shower. Reported anxiety and agitation, abd pain PHYSICAL EXAMINATION: GENERAL: Patient alert, comfortable, in no acute distress. HEENT: Normocephalic, atraumatic. PULMONARY: Bilaterally clear. CARDIAC: Regular, S1, S2. ABDOMEN: Soft, minimum tender, no rebound no guarding, positive bowel sounds. EXTREMITIES: No clubbing, cyanosis, or edema. ASSESSMENT AND PLAN: This is a 38-year-old female patient with past medical history of questionable porphyria but does report for the past 10 years the patient has intermittent episodes of nausea and vomiting, presented with nausea and vomiting. 1. Nausea and vomiting. Possible gastritis versus cannabinoid-induced cyclic vomiting syndrome vs acute intermittent porphria. The patient has no history of diabetes a1c neg. test has been negative. Gonorrhea (GC) and Chlamydia has been negative. IV fluids have been ordered. GI consulted. EGD appreciated. H Pylori neg. full liquid, urine study for workup of acute intermittent porphyria. gastric emptying study showed sever gastroparesis, reglan improved. d/w Dr Ron 2. fever of unknown origin. CRP neg, no WBC elevation. possible 2/2 to viral bronchitis. vs acute intermittent prophyria cxr neg, f/u cultures. will monitor,. respiratory panel neg. ID consulted. workup does not show infection 3. Possible Acute intermittent porphyria Urine studies ordered. consulted Hematology Rec, high glucose loading, Hemin. further rec as per Hematology 4. Gastroesophageal reflux disease (GERD). Continue proton pump inhibitor (PPI). 5. Deep vein thrombosis (DVT) prophylaxis. Heparin subcutaneous. DISPOSITION: Pending clinical improvement. Workup for acute intermittent porphyria, Hemin ordered. VS,Fishbone, I+O VS, Fishbone, I+O Laboratory Tests 08/04/18 06:24 Red Blood Count 4.63, Mean Corpuscular Volume 92.4, Mean Corpuscular Hemoglobin 32.6, Mean Corpuscular Hemoglobin Concent 35.3, Red Cell Distribution Width 12.2, Calcium Level 8.5 Vital Signs Date Time Temp Pulse Resp B/P (MAP) Pulse Ox O2 Delivery O2 Flow Rate FiO2 08/04/18 14:00 98.1 72 18 160/101 (120) 94 1/18/19 06:00 Room Air I&O- Last 24 Hours up to 6 AM 08/04/18 06:00 Intake Total 1680 ml Output Total 750 ml Balance 930 ml BONILLA BATRES MD Aug 04, 2018 19:48
[2018-08-04 22:00] VITALS: BP 115/76
[2018-08-05] MEDS: ALPRAZolam 0.5 MG TAB PO PRN ×2 (00:02→22:18)
[2018-08-05] MEDS: D5W/0.9% SODIUM CHLORIDE 1,000 ML IV SCH (00:30)
[2018-08-05 00:32] LABS: CREATININE 24 HOUR, URINE 889.9 MG/24HR (600-1800); CREATININE, URINE 80.9 MG/DL
[2018-08-05 06:00] VITALS: BP 110/75
[2018-08-05 07:01] LABS: HEMATOCRIT 39.1 % (36.0-47.0); HEMOGLOBIN 13.8 g/dl (12.0-15.5); MEAN CORPUSCULAR HEMOGLOBIN 32.6 pg (27.0-33.0); MEAN CORPUSCULAR HGB CONC 35.3 g/dl (32.0-36.5); MEAN CORPUSCULAR VOLUME 92.4 fl (80.0-96.0); PLATELET COUNT, AUTOMATED 278 10^3/uL (150-450); RED BLOOD COUNT 4.23 10^6/uL (4.00-5.40); WHITE BLOOD COUNT 7.1 10^3/uL (4.0-10.0)
[2018-08-05 07:23] LABS: BLOOD UREA NITROGEN 4 MG/DL (7-18); CALCIUM LEVEL 8.1 MG/DL (8.5-10.1); CARBON DIOXIDE LEVEL 25 MEQ/L (21-32); CHLORIDE LEVEL 106 MEQ/L (98-107); CREATININE FOR GFR 0.53 MG/DL (0.55-1.30); GLOMERULAR FILTRATION RATE > 60.0 (>60); GLUCOSE, FASTING 118 MG/DL (70-100); POTASSIUM SERUM 3.4 MEQ/L (3.5-5.1); SODIUM LEVEL 138 MEQ/L (136-145)
[2018-08-05] MEDS: PANTOPRAZOLE 40MG INJ (PROTONIX) (C9113) IV SCH (08:26)
[2018-08-05] MEDS: METOCLOPRAMIDE INJ 10MG/2ML VIAL (J2765) IV SCH ×3 (08:26→22:18)
[2018-08-05] MEDS: HEPARIN SOD (PORCINE) 5000 UNITS/ML VIAL SQ SCH ×2 (08:26→22:03)
[2018-08-05] MEDS: FLUoxetine 10 MG CAP PO SCH (08:26)
[2018-08-05] MEDS: KCL 40MEQ IN D5/NS 1000ML 1,000 ML IV SCH ×2 (08:27→15:22)
--- NOTE | 2018-08-05 10:29 | CR ---
DATE OF CONSULTATION: 08/04/2018 This is a very pleasant 38-year-old female who was admitted to the hospital due concern for persistent nausea and vomiting. The patient had been taking marijuana for persistent nausea. Her test had been negative and she has had no known history of any problems with eating any contaminated food and no one else in the family is sick. She has had a history of gastroesophageal reflux disease and is on a proton pump inhibitor. She also has a pertinent past medical history of having porphyria and has been treated by a Dr. Yañez out of the [place] area. She has mainly been treated with intravenous glucose, but has also received Hemin, at least one time when she was unable to break a porphyria crisis. She is complaining of restlessness, problems sleeping, persistent nausea and agitation. She has intermittent low back pain as well, but no history of any hematuria. She is currently on her menses and has just started this. She has been having increasing pain with her menstrual cycles. These cyclical episodes of nausea and vomiting have been somewhat associated with her menstrual cycle in the past as well. Her current medications at this point include: - Ativan 0.5 mg p.o. b.i.d. - ondansetron 4 mg p.o. b.i.d. p.r.n. for nausea PAST SURGICAL HISTORY: None. GYNECOLOGIC HISTORY: She currently has a copper T placed for contraception. She has one son. She currently lives in [place] with her who is on active duty . She denies any alcohol or smoking cigarettes. She currently is using marijuana for cyclical pain. FAMILY HISTORY: She relates that her mother is healthy, but there are family members on her mother's side who have had cancer, unknown. ALLERGIES: She no known drug allergies. MEDICATIONS HERE (Had included): - Flagyl - fluoxetine 10 mg p.o. daily - as well as the above noted Ativan REVIEW OF SYSTEMS: She relates a headache, restlessness, inability to sleep, agitation. She has had no current visual problems, problems swallowing or decreased appetite. She has a feeling of fullness in the epigastric area. Persistent ongoing nausea, unremitting, that has not been helped too much with the marijuana use. The marijuana was used to specifically for intractable nausea. She had no current diarrhea or vaginal discharge. She is currently menstruating. She has not had any misplacement or any history of any pelvic inflammatory disease or any infection. She has a copper T that had gone out of place and replaced by her CONTROL OFF[employer]. She currently has no current joint pains. Current back pain and the back pain is mild to moderate and intermittent. Neurological: She shows restlessness. She has had no hallucinations. No current seizure disorder. PHYSICAL EXAMINATION: Vital Signs: Her weight is 57.5 kg. Her temperature is 98.1, pulse 72, respiratory rate is 18, blood pressure (BP) is 160/101 and pulse oximetry is 94. Her HEENT is normocephalic, atraumatic. PERRL. EOMI. Sclerae is otherwise white, nonicteric. Oropharynx is otherwise clear. Her neck is supple with no adenopathy. Chest is clear to auscultation and percussion. Abdomen: She has some fullness in the epigastric area. No ascites. No guarding. No rebound. Extremities: Show no cyanosis, clubbing or any edema. On her urine examination, the color is yellow, appearance is hazy, 1+ proteinuria, 2+ ketones. She has 8 RBCs and a small amount of mucus. On her drug screen, she is negative for opiates, methadone, barbiturates; positive for benzodiazepines which were given in the hospital; negative for cocaine, and is positive for cannabinoids which was anticipated. On her chemistries, her sodium is 135, potassium 3.7, chloride is 103, CO2 is 25, BUN is 6, creatinine 0.59, GFR is greater than 60, fasting glucose is 101, hemoglobin A1c is 5.4, calcium is 8.5, magnesium is 2.2. Stool for Helicobacter pylori is currently pending. Serologies: She is negative for chlamydia, HIV and gonorrhea. IMPRESSION: Acute intermittent porphyria by history with current neurological symptoms of agitation, restlessness, sleeplessness, low back pain - all consistent with AIP, but can be compounded by marijuana use as well. PLAN: To change her intravenous fluids to D5 normal saline. Monitor for any signs of hyponatremia. Monitor for any neurological symptoms. Also, patient's with acute intermittent porphyria can have exacerbation due to their menstrual cycles, which appears to be the case with her since her symptoms have been cyclical. I am recommending Hematin at 3 mg/kg/day to try for 3 days. This has been ordered through the pharmacy and will be coming to us within 24 to 48 hours. The laboratory testing warfarin is not required at this time, the patient on clinical basis and history will need to be empirically treated.
--- NOTE | 2018-08-05 12:29 | IPNPDOC ---
Date Seen The patient was seen on 08/05/18. Progress Note SUBJECTIVE: The patient is still having nausea and had emesis X 1 this am feels better since starting the [id number] OBJECTIVE PHYSICAL EXAMINATION: VITAL SIGNS: Please see below. GENERAL: [color is intact feels Ok ] HEENT: [NC AT PErrl eomi sclera white non icteric intact ] CARDIOVASCULAR: [s1 s2 appreciated no rubs gallops murmurs or heaves ]. RESPIRATORY: [clear to A&P]. ABDOMINAL: soft mihnimal distention min tenderness inthe epigastric area EXTREMITIES: no CCE NEUROLOGICAL: [less anxious today ] PSYCHOLOGICAL: [ more relaxed but still h as concerns about her illness and the management of her disease ] LABORATORY DATA, IMAGING STUDIES, MICROBIOLOGY: Please see below. Echocardiogram: . DVT prophylaxis ordered?: ASSESSMENT AND PLAN: This is a -year-old [RACE] [GENDER] with . PROBLEMS: 1. : [Porphyria IAP ]. 2. : . 3. : . DISPOSITION: The paitent will be reqwuesting her records from [facility] in [place] as well as the re cords she has at home there is no sun for the next few days so we cannot test the urine in direct sunlight which is a quick non qualitiative test to assess for porphyrin presence Reggie n needs to be acquired via a contract with the company and pharmacy and it is on Tuesday which may hold things up as well . Currently she is stable but still symtomtic ]. VS, I&O, 24H, Fishbone Vital Signs/I&O Vital Signs Date Time Temp Pulse Resp B/P (MAP) Pulse Ox O2 Delivery O2 Flow Rate FiO2 08/05/18 06:00 98.4 68 20 110/75 (87) 100 Room Air I&O- Last 24 Hours up to 6 AM 08/05/18 06:00 Intake Total 2560 ml Output Total 1500 ml Balance 1060 ml Laboratory Data 24H LABS Laboratory Tests 2 08/04/18 14:08: 08/04/18 23:54: Urine Total Volume 1100, Urine Creatinine 80.9, Urine Creatinine 24 Hour 889.9 08/05/18 06:31: Nucleated Red Blood Cells % (auto) 0.0, Anion Gap 7L, Glomerular Filtration Rate > 60.0, Blood Urea Nitrogen 4L, Creatinine 0.53L, Sodium Level 138, Potassium Level 3.4L, Chloride Level 106, Carbon Dioxide Level 25, Calcium Level 8.1L, Magnesium Level 2.0 CBC/BMP Laboratory Tests 08/05/18 06:31 Red Blood Count 4.23, Mean Corpuscular Volume 92.4, Mean Corpuscular Hemoglobin 32.6, Mean Corpuscular Hemoglobin Concent 35.3, Red Cell Distribution Width 12.2, Calcium Level 8.1 L Microbiology Microbiology 08/01/18 Blood Culture - Preliminary, Resulted No Growth after 72 hours. All specime... 08/01/18 Blood Culture - Preliminary, Resulted No Growth after 72 hours. All specime... 08/01/18 Genital Culture - Final, Complete Gardnerella Vaginalis 08/02/18 Gram Stain - Final, Complete 08/02/18 Sputum Culture - Final, Complete 08/02/18 Respiratory Virus Panel (PCR) (TANYA) - Final, Complete Antonia White MD Aug 05, 2018 12:29
[2018-08-05 14:00] VITALS: BP 122/79
--- NOTE | 2018-08-05 19:36 | IPNPDOC ---
Text Note Date of Service The patient was seen on 08/05/18. NOTE Continue to reported n/v. n/v improved with hot shower. Reported anxiety and agitation, abd pain PHYSICAL EXAMINATION: GENERAL: Patient alert, comfortable, in no acute distress. HEENT: Normocephalic, atraumatic. PULMONARY: Bilaterally clear. CARDIAC: Regular, S1, S2. ABDOMEN: Soft, minimum tender, no rebound no guarding, positive bowel sounds. EXTREMITIES: No clubbing, cyanosis, or edema. ASSESSMENT AND PLAN: This is a 38-year-old female patient with past medical history of questionable porphyria but does report for the past 10 years the patient has intermittent episodes of nausea and vomiting, presented with nausea and vomiting. 1. Nausea and vomiting. Possible gastritis versus cannabinoid-induced cyclic vomiting syndrome vs acute intermittent porphria. The patient has no history of diabetes a1c neg. test has been negative. Gonorrhea (GC) and Chlamydia has been negative. IV fluids have been ordered. GI consulted. EGD appreciated. H Pylori neg. full liquid, urine study for workup of acute intermittent porphyria. gastric emptying study showed sever gastroparesis, reglan improved. d/w Dr Ron 2. fever of unknown origin. CRP neg, no WBC elevation. possible 2/2 to viral bronchitis. vs acute intermittent prophyria cxr neg, f/u cultures. will monitor,. respiratory panel neg. ID consulted. workup does not show infection 3. Possible Acute intermittent porphyria Urine studies ordered. consulted Hematology Rec, high glucose loading fluid, Hemin. further rec as per Hematology 4. Gastroesophageal reflux disease (GERD). Continue proton pump inhibitor (PPI). 5. Deep vein thrombosis (DVT) prophylaxis. Heparin subcutaneous. DISPOSITION: Pending clinical improvement. Workup for acute intermittent porphyria, Hemin ordered. VS,Fishbone, I+O VS, Fishbone, I+O Laboratory Tests 08/05/18 06:31 Red Blood Count 4.23, Mean Corpuscular Volume 92.4, Mean Corpuscular Hemoglobin 32.6, Mean Corpuscular Hemoglobin Concent 35.3, Red Cell Distribution Width 12.2, Calcium Level 8.1 L Vital Signs Date Time Temp Pulse Resp B/P (MAP) Pulse Ox O2 Delivery O2 Flow Rate FiO2 08/05/18 14:00 99.2 84 19 122/79 (93) 99 Room Air I&O- Last 24 Hours up to 6 AM 08/05/18 06:00 Intake Total 2560 ml Output Total 1500 ml Balance 1060 ml BONILLA BATRES MD Aug 05, 2018 19:36
[2018-08-05 22:00] VITALS: BP 115/82
[2018-08-06] MEDS: KCL 40MEQ IN D5/NS 1000ML 1,000 ML IV SCH (01:11)
[2018-08-06 06:00] VITALS: BP 110/70
[2018-08-06 06:03] LABS: HEMATOCRIT 40.9 % (36.0-47.0); HEMOGLOBIN 13.8 g/dl (12.0-15.5); MEAN CORPUSCULAR HEMOGLOBIN 33.3 pg (27.0-33.0); MEAN CORPUSCULAR HGB CONC 33.7 g/dl (32.0-36.5); MEAN CORPUSCULAR VOLUME 98.8 fl (80.0-96.0); PLATELET COUNT, AUTOMATED 269 10^3/uL (150-450); RED BLOOD COUNT 4.14 10^6/uL (4.00-5.40); WHITE BLOOD COUNT 10.8 10^3/uL (4.0-10.0)
[2018-08-06 06:25] LABS: BLOOD UREA NITROGEN 4 MG/DL (7-18); CALCIUM LEVEL 8.7 MG/DL (8.5-10.1); CARBON DIOXIDE LEVEL 29 MEQ/L (21-32); CHLORIDE LEVEL 107 MEQ/L (98-107); CREATININE FOR GFR 0.72 MG/DL (0.55-1.30); GLOMERULAR FILTRATION RATE > 60.0 (>60); GLUCOSE, FASTING 110 MG/DL (70-100); POTASSIUM SERUM 4.9 MEQ/L (3.5-5.1); SODIUM LEVEL 140 MEQ/L (136-145)
[2018-08-06] MEDS: METOCLOPRAMIDE INJ 10MG/2ML VIAL (J2765) IV SCH ×3 (06:26→22:54)
[2018-08-06] MEDS: PANTOPRAZOLE 40MG INJ (PROTONIX) (C9113) IV SCH (08:48)
[2018-08-06] MEDS: HEPARIN SOD (PORCINE) 5000 UNITS/ML VIAL SQ SCH ×2 (08:48→21:05)
[2018-08-06] MEDS: FLUoxetine 10 MG CAP PO SCH (08:48)
[2018-08-06] MEDS: KCL 20MEQ IN D5/0.45NS 1000ML 1,000 ML IV SCH ×2 (08:48→17:10)
[2018-08-06 14:00] VITALS: BP 120/74
--- NOTE | 2018-08-06 14:07 | IPNPDOC ---
Text Note Date of Service The patient was seen on 08/06/18. NOTE reported hungry. no n/v this am. denied abd pain, chest pain. not fever overnight. PHYSICAL EXAMINATION: GENERAL: Patient alert, comfortable, in no acute distress. HEENT: Normocephalic, atraumatic. PULMONARY: Bilaterally clear. CARDIAC: Regular, S1, S2. ABDOMEN: Soft, minimum tender, no rebound no guarding, positive bowel sounds. EXTREMITIES: No clubbing, cyanosis, or edema. ASSESSMENT AND PLAN: This is a 38-year-old female patient with past medical history of questionable porphyria but does report for the past 10 years the patient has intermittent episodes of nausea and vomiting, presented with nausea and vomiting. 1. Nausea and vomiting. Possible gastritis versus cannabinoid-induced cyclic vomiting syndrome vs acute intermittent porphria. The patient has no history of diabetes a1c neg. test has been negative. Gonorrhea (GC) and Chlamydia has been negative. IV fluids have been ordered. GI consulted. EGD appreciated. H Pylori neg. advance diet to low residual. urine study for workup of acute intermittent porphyria. gastric emptying study showed sever gastroparesis, reglan improved. d/w Dr Ron 2. fever of unknown origin. CRP neg, no WBC elevation. possible 2/2 to viral bronchitis. vs acute intermittent prophyria cxr neg, f/u cultures. will monitor,. respiratory panel neg. ID consulted. workup does not show infection 3. Possible Acute intermittent porphyria Urine studies ordered. consulted Hematology Rec, high glucose loading fluid, Hemin. further rec as per Hematology 4. Gastroesophageal reflux disease (GERD). Continue proton pump inhibitor (PPI). 5. Deep vein thrombosis (DVT) prophylaxis. Heparin subcutaneous. DISPOSITION: Pending clinical improvement. Workup for acute intermittent porphyria, Hemin ordered. VS,Fishbone, I+O VS, Fishbone, I+O Laboratory Tests 08/06/18 05:41 Red Blood Count 4.14, Mean Corpuscular Volume 98.8 H, Mean Corpuscular Hemoglobin 33.3 H, Mean Corpuscular Hemoglobin Concent 33.7, Red Cell Distribution Width 12.5, Calcium Level 8.7 Vital Signs Date Time Temp Pulse Resp B/P (MAP) Pulse Ox O2 Delivery O2 Flow Rate FiO2 08/06/18 06:00 97.7 72 20 110/70 83 96 Room Air I&O- Last 24 Hours up to 6 AM 08/06/18 06:00 Intake Total 1520 ml Output Total 0 ml Balance 1520 ml BONILLA BATRES MD Aug 06, 2018 14:07
[2018-08-06] MEDS: ACETAMINOPHEN TAB 650MG DOSE (2X325MG) PO PRN (14:11)
[2018-08-06 21:00] VITALS: BP 138/74
[2018-08-06] MEDS: ALPRAZolam 0.5 MG TAB PO PRN (22:54)
[2018-08-07] MEDS: KCL 20MEQ IN D5/0.45NS 1000ML 1,000 ML IV SCH (04:35)
[2018-08-07 06:00] VITALS: BP 117/66
[2018-08-07 06:06] LABS: HEMATOCRIT 36.7 % (36.0-47.0); HEMOGLOBIN 12.5 g/dl (12.0-15.5); MEAN CORPUSCULAR HEMOGLOBIN 33.1 pg (27.0-33.0); MEAN CORPUSCULAR HGB CONC 34.1 g/dl (32.0-36.5); MEAN CORPUSCULAR VOLUME 97.1 fl (80.0-96.0); PLATELET COUNT, AUTOMATED 259 10^3/uL (150-450); RED BLOOD COUNT 3.78 10^6/uL (4.00-5.40); WHITE BLOOD COUNT 7.2 10^3/uL (4.0-10.0)
[2018-08-07] MEDS: METOCLOPRAMIDE INJ 10MG/2ML VIAL (J2765) IV SCH (06:26)
[2018-08-07 06:39] LABS: BLOOD UREA NITROGEN 9 MG/DL (7-18); CALCIUM LEVEL 8.3 MG/DL (8.5-10.1); CARBON DIOXIDE LEVEL 28 MEQ/L (21-32); CHLORIDE LEVEL 103 MEQ/L (98-107); CREATININE FOR GFR 0.62 MG/DL (0.55-1.30); GLOMERULAR FILTRATION RATE > 60.0 (>60); GLUCOSE, FASTING 95 MG/DL (70-100); POTASSIUM SERUM 4.4 MEQ/L (3.5-5.1); SODIUM LEVEL 138 MEQ/L (136-145)
[2018-08-07] MEDS ORDERED: REGL5TAB2 PO (08:36)
[2018-08-07] MEDS: PANTOPRAZOLE 40MG INJ (PROTONIX) (C9113) IV SCH (09:00)
[2018-08-07] MEDS: HEPARIN SOD (PORCINE) 5000 UNITS/ML VIAL SQ SCH (09:00)
[2018-08-07] MEDS: FLUoxetine 10 MG CAP PO SCH (09:30)
[2018-08-07] MEDS ORDERED: PROZ10CA7 PO (11:21)
--- NOTE | 2018-08-07 16:27 | IPNPDOC ---
Date Seen The patient was seen on 08/07/18. Progress Note SUBJECTIVE: Patient is a 38 year old who has been slowly improving wiht her GI symtpms since dextrose Iv has been administered She hs not had any episodes of emesis or abdominal pain this am PHYSICAL EXAMINATION: VITAL SIGNS: Please see below. GENERAL: [ NC at perrl eomi sclera white or clear neck supple chest clear ot A&P CV s1 s2 appreciated no murmurs Abdomen is soft non tender Ext no cce skin no rashes or lesions noted neuro is intact no numbness or tinging of the fingertips or toes noted LABORATORY DATA, IMAGING STUDIES, MICROBIOLOGY: Please see below. Echocardiogram: . DVT prophylaxis ordered?: ASSESSMENT AND PLAN: 1. : [Acute intermittent porphyria attack precipitated by menses ]. 2. : . 3. : . DISPOSITION: [I advised the patient to continue at home try to reduce stress have a low carbohydrate , high protein diet for now follow up in the outpatient department in one week We will check her porphyrin labs in the cancer center Allergies Coded Allergies No Known Allergies (Unverified07/31/18) Current Medications Acetaminophen (Tylenol Tab) 650 mg Q4HP PRN PO MILD PAIN OR FEVER Last administered on 08/06/18at 14:11; Start 07/31/18 at 22:15; Stop 08/07/18 at 13:17; Status DC Alprazolam (Xanax) 0.5 mg BID PRN PO ANXIETY Last administered on 08/06/18at 22:54; Start 08/02/18 at 13:30; Stop 08/07/18 at 13:17; Status DC Dextrose/Sodium Chloride 1,000 ml @ 125 mls/hr Q8H IV Last administered on 08/05/18at 00:30; Start 08/04/18 at 16:30; Stop 08/05/18 at 07:30; Status DC Fluoxetine HCl (PROzac) 10 mg DAILY PO Last administered on 08/07/18at 09:30; Start 08/04/18 at 09:00; Stop 08/07/18 at 13:17; Status DC Heparin Sodium (Porcine) (Heparin) 5,000 units Q12H SQ Last administered on 08/06/18at 21:05; Start 08/01/18 at 09:00; Stop 08/07/18 at 13:17; Status DC Home Med (Med Rec Complete!) ASDIRECTED XX ; Start 07/31/18 at 21:30; Stop 07/31/18 at 21:30; Status DC Lactated Ringer's 1,000 ml @ 75 mls/hr [id number] IV ; Start 08/03/18 at 12:45; Stop 08/03/18 at 13:45; Status DC Metoclopramide HCl (REGLAN INJection) 5 mg Q12H IV Last administered on 08/04/18at 06:06; Start 08/03/18 at 19:00; Stop 08/04/18 at 16:56; Status DC Metoclopramide HCl (REGLAN INJection) 5 mg Q8H IV Last administered on 08/03/18at 06:39; Start 08/02/18 at 15:00; Stop 08/03/18 at 07:16; Status DC Metoclopramide HCl (REGLAN INJection) 5 mg Q8H IV Last administered on 08/07/18at 06:26; Start 08/04/18 at 23:00; Stop 08/07/18 at 13:17; Status DC Metronidazole 500 mg/IV Miscellaneous Supplies 100 ml @ 100 mls/hr Q12H IV ; Start 08/04/18 at 02:00; Stop 08/04/18 at 02:00; Status DC Metronidazole 500 mg/IV Miscellaneous Supplies 100 ml @ 100 mls/hr Q8H IV Last administered on 08/03/18at 13:43; Start 08/03/18 at 14:00; Stop 08/03/18 at 14:15; Status DC Ondansetron HCl (ZOFRAN INJection) 4 mg Q4HP PRN IV NAUSEA OR VOMITING; Start 08/03/18 at 12:45; Stop 08/03/18 at 13:45; Status DC Ondansetron HCl (ZOFRAN INJection) 4 mg Q4HP PRN IV NAUSEA OR VOMITING Last administered on 08/04/18at 15:25; Start 08/04/18 at 08:15; Stop 08/07/18 at 13:17; Status DC Ondansetron HCl (ZOFRAN INJection) 4 mg Q8HP PRN IV NAUSEA OR VOMITING Last administered on 08/02/18at 12:07; Start 07/31/18 at 22:15; Stop 08/02/18 at 14:39; Status DC Oxycodone/ Acetaminophen (Percocet 5mg/ 325mg Tablet) 1 tab ASDIRECTED PRN PO MILD/MODERATE PAIN (PS 1-7); Start 08/03/18 at 12:45; Stop 08/03/18 at 13:45; Status DC Pantoprazole Sodium (Protonix) 40 mg Q24H IV Last administered on 08/06/18at 08:48; Start 08/01/18 at 09:00; Stop 08/07/18 at 13:17; Status DC Pantoprazole Sodium (Protonix) 40 mg Q24H IV ; Start 08/01/18 at 09:00; Status Cancel Potassium Chloride/Dextrose/ Sod Cl 1,000 ml @ 100 mls/hr Q10H IV Last administered on 08/07/18at 04:35; Start 08/06/18 at 08:00; Stop 08/07/18 at 08:36; Status DC Potassium Chloride/Sodium Chloride 1,000 ml @ 100 mls/hr Q10H IV Last administered on 08/04/18at 12:17; Start 08/02/18 at 07:11; Stop 08/04/18 at 16:23; Status DC Potassium Chloride 1,000 ml @ 125 mls/hr Q8H IV Last administered on 08/06/18at 01:11; Start 08/05/18 at 08:00; Stop 08/06/18 at 07:55; Status DC Promethazine HCl (PHENERGAN INJection) 12.5 mg Q6HP PRN IV NAUSEA Last administered on 08/02/18at 05:08; Start 08/01/18 at 09:15; Stop 08/02/18 at 15:00; Status DC Sodium Chloride 1,000 ml @ 100 mls/hr Q10H IV Last administered on 08/02/18at 05:08; Start 07/31/18 at 22:15; Stop 08/02/18 at 07:12; Status DC Laboratory Tests 08/04/18 06:24 Red Blood Count 4.63, Mean Corpuscular Volume 92.4, Mean Corpuscular Hemoglobin 32.6, Mean Corpuscular Hemoglobin Concent 35.3, Red Cell Distribution Width 12 .2, Calcium Level 8.5 08/05/18 06:31 Red Blood Count 4.23, Mean Corpuscular Volume 92.4, Mean Corpuscular Hemoglobin 32.6, Mean Corpuscular Hemoglobin Concent 35.3, Red Cell Distribution Width 12.2, Calcium Level 8.1 08/06/18 05:41 Red Blood Count 4.14, Mean Corpuscular Volume 98.8, Mean Corpuscular Hemoglobin 33.3, Mean Corpuscular Hemoglobin Concent 33.7, Red Cell Distribution Width 12.5, Calcium Level 8.7 08/07/18 05:36 Red Blood Count 3.78, Mean Corpuscular Volume 97.1, Mean Corpuscular Hemoglobin 33.1, Mean Corpuscular Hemoglobin Concent 34.1, Red Cell Distribution Width 12.5, Calcium Level 8.3 Laboratory Tests 08/06/18 05:41 Red Blood Count 4.14, Mean Corpuscular Volume 98.8 H, Mean Corpuscular Hemoglobin 33.3 H, Mean Corpuscular Hemoglobin Concent 33.7, Red Cell Distribution Width 12.5, Calcium Level 8.7 08/07/18 05:36 Red Blood Count 3.78 L, Mean Corpuscular Volume 97.1 H, Mean Corpuscular Hemoglobin 33.1 H, Mean Corpuscular Hemoglobin Concent 34.1, Red Cell Dist ribution Width 12.5, Calcium Level 8.3 L ]. all labs and meds reveiwed PFHX PSH PMHX have remained unchanged since her admission VS, I&O, 24H[facility] Vital Signs/I&O Vital Signs Date Time Temp Pulse Resp B/P (MAP) Pulse Ox O2 Delivery O2 Flow Rate FiO2 08/07/18 06:00 98.5 72 18 117/66 (83) 97 Room Air I&O- Last 24 Hours up to 6 AM 08/07/18 06:00 Intake Total 2280 ml Output Total 0 ml Balance 2280 ml Laboratory Data 24H LABS Laboratory Tests 2 08/07/18 05:36: Nucleated Red Blood Cells % (auto) 0.0, Anion Gap 7L, Glomerular Filtration Rate > 60.0, Blood Urea Nitrogen 9#, Creatinine 0.62, Sodium Level 138, Potassium Level 4.4, Chloride Level 103, Carbon Dioxide Level 28, Calcium Level 8.3L, Magnesium Level 2.0 CBC/BMP Laboratory Tests 08/07/18 05:36 Red Blood Count 3.78 L, Mean Corpuscular Volume 97.1 H, Mean Corpuscular Hemoglobin 33.1 H, Mean Corpuscular Hemoglobin Concent 34.1, Red Cell Distribution Width 12.5, Calcium Level 8.3 L Microbiology Microbiology 08/01/18 Blood Culture - Final, Complete NO GROWTH AFTER 5 DAYS 08/01/18 Blood Culture - Final, Complete NO GROWTH AFTER 5 DAYS 08/01/18 Genital Culture - Final, Complete Gardnerella Vaginalis 08/02/18 Gram Stain - Final, Complete 08/02/18 Sputum Culture - Final, Complete 08/02/18 Respiratory Virus Panel (PCR) (TANYA) - Final, Complete Antonia White MD Aug 07, 2018 16:27
--- NOTE | 2018-08-07 18:10 | DSES ---
DATE OF ADMISSION: 08/03/2018 DATE OF DISCHARGE: 08/07/2018 PRIMARY CARE PROVIDER: Jay Jay Jones MANAGER INPATIENT: Dr. Ron INFECTIOUS DISEASE: Dr. Jaylan Coombs HEMATOLOGY/ONCOLOGY: Dr. Antonia White FINAL DIAGNOSES: Nausea, vomiting, likely secondary to acute intermittent porphyria, gastritis, cyclic vomiting syndrome, gastroparesis. Fever, likely secondary to acute intermittent porphyria. Gastroesophageal reflux disease (GERD). This is a 38-year-old female patient with questionable underlying medical history of porphyria, spouse of , presented with episode of nausea, vomiting for the past 3 days. Not able to tolerate liquid or solid. Bilious vomiting, dry heaving. Denies any blood. Initially denied any fever or chills. Patient sexually active with , has an intrauterine device (IUD). Patient reported having similar episode in the past 10 years with intermittent episodes. Does use cannabinoids. Denies any other illicit drugs. Indulges alcohol occasionally. Smokes half a pack per day since age 14. Patient had workup in the past but does not know what is causing the nausea, vomiting. She is scheduled to do an esophagogastroduodenoscopy (EGD) in [place]. Denies any cough, shortness of breath, sick contact. Recent travels, stays between [place] and [place]. Feeling weak. HOSPITAL COURSE: The patient was admitted to the hospital. CT scan was done. Pelvic exam was done. Patient's hospital course was complicated with episodes of fever. Infectious disease was consulted. It was determined fever is not due to infectious etiology. EGD was done. Gastric emptying study shows severe gastroparesis. It was eventually determined that the patient's symptoms are likely consistent with acute intermittent porphyria. The patient's fluid was switched to high glucose fluids as per recommendation by hematology/oncology and pharmacy has attempted to order hemin, which is a treatment for acute intermittent porphyria. Urine studies for acute intermittent porphyria was sent. Hemin is scheduled to be arriving at the hospital on 08/07/2018. The patient's symptoms gradually improved over the weekend. The patient currently is tolerating diet. Denies any chest pain, pressure, or discomfort. Almost returning to baseline. As per hematology/oncology, Dr. White, patient likely will have further exacerbation in the near future. Pharmacy is actively trying to get application to have hemin in house so the next time the patient had exacerbation, the patient can receive the appropriate medication and patient will require high glucose fluids next time patient arrives with similar symptoms. Currently the patient is comfortable, tolerating oral, in no acute distress, ready to be discharged for further care. VITAL SIGNS: Temperature 98.5, pulse 72, respirations 18, blood pressure 117/66, pulse oximetry 97% on room air. LABORATORY: WBC 7.2, hemoglobin and hematocrit 12.5 over 36.7, platelets 259. Chemistry: Sodium 138, potassium 4.4, chloride 103, bicarbonate 28, BUN 9, creatinine 0.62. GENERAL: Patient alert, comfortable, in no acute distress. HEENT: Normocephalic, atraumatic. PULMONARY: Bilaterally clear. CARDIAC: Regular, S1, S2. ABDOMEN: Soft, nontender. Positive bowel sounds. EXTREMITIES: No clubbing, cyanosis, or edema. DISCHARGE MEDICATION: - fluoxetine 10 mg by mouth daily - Reglan 5 mg by mouth three times a day - Xanax 0.5 mg by mouth twice a day as needed - Zofran 4 mg by mouth twice a day as needed DISCHARGE INSTRUCTIONS: Please see primary care provider in 7 days. Referral from primary care provider for eye specialist, Dr. White, and gastroenterology. Further urine studies pending for acute intermittent porphyria. Please followup results with primary care provider or Dr. White. Return to the hospital if symptoms worsen. Oral hydration.
[2018-08-10 00:06] LABS: COPROPORPHYRIN I URINE 34 ug/L (Undefined); COPROPORPHYRIN I URINE 24HR 37 ug/24 hr (0-24); COPROPORPHYRIN III URINE 113 ug/L (Undefined); COPROPORPHYRIN III URINE 24HR 124 ug/24 hr (0-74); HEPTACARBOXYLPORPHYRIN UR 24HR 3 ug/24 hr (0-4); HEPTACARBOXYLPORPHYRIN URINE 3 ug/L (Undefined); HEXACARBOXYLPORPHYRIN UR 24HR <1 ug/24 hr (0-1); HEXACARBOXYLPORPHYRIN URINE <1 ug/L (Undefined); PENTACARBOXYLPORPHYRIN UR 24HR 1 ug/24 hr (0-4); PENTACARBOXYLPORPHYRIN URINE 1 ug/L (Undefined); PORPHOBILINOGEN LEVEL URINE 0.3 mg/L (0.0-2.0); UROPORPHYRIN URINE 7 ug/L (Undefined); UROPORPHYRIN URINE 24HR 8 ug/24 hr (0-24)
== END 2018-08-07 13:15 | disposition home or self-care (01) | DRG 642 ==
LOC: EDBD 14:31 → M ED 14:31 → M ED INP 22:14 → M MS5PR 08-01 → OBSVTOIN 08-03 08:03
PROVIDERS: ADMIT Hospitalist; ATTEND Hospitalist
PROC: 0DB78ZX Excision of Stomach, Pylorus, Via Natural or Artificial Opening Endoscopic, Diagnostic (ICD-10-PCS; principal; 2018-08-03 12:00)
DX: E80.21 Acute intermittent (hepatic) porphyria (principal); K29.60 Other gastritis without bleeding; F17.210 Nicotine dependence, cigarettes, uncomplicated; F12.10 Cannabis abuse, uncomplicated; G43.A0 Cyclical vomiting, in migraine, not intractable; B37.3 Candidiasis of vulva and vagina; K21.9 Gastro-esophageal reflux disease without esophagitis; K31.84 Gastroparesis; Z90.49 Acquired absence of other specified parts of digestive tract

== ENCOUNTER 2018-09-13 19:31 | Inpatient (IN) | payer OTHER ==
[~2018-09-13] VITALS: Ht 152.4 cm; Wt 54.5 kg
[~2018-09-13 19:31] MED LIST: ALPR0.5T3 PO; HAIR1CHW2 PO; ONDA4TAB5 PO; PROZ10CA7 PO; REGL5TAB2 PO; XANA1TAB2 PO
[2018-09-13] MEDS ORDERED: LORazepam 2 MG/ML VIAL (J2060) IV STA (20:11)
[2018-09-13] MEDS ORDERED: NS 1,000 ML IV ONE (20:15)
[2018-09-13] MEDS ORDERED: METOCLOPRAMIDE INJ 10MG/2ML VIAL (J2765) IV ONE (20:15)
[2018-09-13 20:23] LABS: BASO # 0.1 10^3/uL (0.0-0.2); BASO % 0.4 % (0.0-1.0); EOS % 0.1 % (0.0-3.0); HEMATOCRIT 43.4 % (36.0-47.0); HEMOGLOBIN 14.8 g/dl (12.0-15.5); LYMPH # 1.6 10^3/uL (1.5-4.5); LYMPH % 10.2 % (24.0-44.0); MEAN CORPUSCULAR HEMOGLOBIN 33.2 pg (27.0-33.0); MEAN CORPUSCULAR HGB CONC 34.1 g/dl (32.0-36.5); MEAN CORPUSCULAR VOLUME 97.3 fl (80.0-96.0); MONO # 0.5 10^3/uL (0.0-0.8); MONO % 3.1 % (0.0-5.0); NEUTROPHILS # 13.1 10^3/uL (1.8-7.7); NEUTROPHILS % 85.7 % (36.0-66.0); PLATELET COUNT, AUTOMATED 360 10^3/uL (150-450); RED BLOOD COUNT 4.46 10^6/uL (4.00-5.40); WHITE BLOOD COUNT 15.3 10^3/uL (4.0-10.0)
[2018-09-13 20:33] LABS: HCG, SERUM QUALITATIVE NEGATIVE (NEGATIVE)
[2018-09-13 20:37] LABS: ALBUMIN 4.2 GM/DL (3.2-5.2); ALT/SGPT 24 U/L (12-78); BILIRUBIN,DIRECT 0.2 MG/DL (0.0-0.2); BILIRUBIN,TOTAL 0.7 MG/DL (0.2-1.0); BLOOD UREA NITROGEN 14 MG/DL (7-18); CALCIUM LEVEL 9.3 MG/DL (8.5-10.1); CARBON DIOXIDE LEVEL 18 MEQ/L (21-32); CHLORIDE LEVEL 110 MEQ/L (98-107); CREATININE FOR GFR 0.75 MG/DL (0.55-1.30); GLOMERULAR FILTRATION RATE > 60.0 (>60); GLUCOSE, FASTING 170 MG/DL (70-100); LIPASE 221 U/L (73-393); POTASSIUM SERUM 4.1 MEQ/L (3.5-5.1); SODIUM LEVEL 141 MEQ/L (136-145); TOTAL PROTEIN 7.5 GM/DL (6.4-8.2)
[2018-09-13] MEDS ORDERED: HALOPERIDOL 5 MG/ML VIAL (J1630) IV ONE (22:00)
[2018-09-13] MEDS ORDERED: ONDANSETRON 4MG/2ML VIAL (J2405) IV ONE (22:00)
[2018-09-13] MEDS ORDERED: diphenhydrAMINE INJ 50MG/ML VIAL (J1200) IV ONE (22:00)
[2018-09-13] MEDS ORDERED: ISOVUE-370 76% 100ML VIAL (Q9967) As Ordered ONE (22:38)
--- NOTE | 2018-09-13 23:51 | REPVR ---
EXAM: CT Abdomen and Pelvis With Contrast EXAM DATE/TIME: 09/13/2018 10:35 PM CLINICAL HISTORY: 38 years old, female; Pain; Abdominal pain; Generalized; Additional info: Intractable vomiting, leukocytosis TECHNIQUE: Axial computed tomography images of the abdomen and pelvis with intravenous contrast. All CT scans at this facility use at least one of these dose optimization techniques: automated exposure control; mA and/or kV adjustment per patient size (includes targeted exams where dose is matched to clinical indication); or iterative reconstruction. Coronal and sagittal reformatted images were created and reviewed. CONTRAST: Contrast Material: 100 ml of iso; Contrast Route: ac COMPARISON: CT ABD/PEL W/IV CONTRAST ONLY 07/31/2018 8:57 PM FINDINGS: Lower thorax: Clear appearing lung bases. The heart is normal in size. There is no pericardial effusion. ABDOMEN: Liver: Normal liver. Gallbladder and bile ducts: There are surgical clips in the gallbladder fossa and the patient is status post cholecystectomy. Normal common bile duct. Pancreas: Normal pancreas. Spleen: Normal spleen. Adrenals: Normal adrenal glands. Kidneys and ureters: There is enhancement of the kidneys. No evidence of obstruction of the right and left ureter. No evidence of hydronephrosis. Stomach and bowel: The cecum is in the right pelvis. Normal-appearing small bowel. Appendix: Normal-appearing appendix. PELVIS: Bladder: Normal appearing urinary bladder. Reproductive: There is an IUD within the center of the uterus. 2 CM follicular cyst right ovary. There are small follicular cysts left ovary. ABDOMEN and PELVIS: Intraperitoneal space: There is no evidence of pneumoperitoneum. There is no evidence of free fluid in the abdomen or the pelvis. Bones/joints: Mild posterior disc protrusion L4-L5 and L5-S1. Soft tissues: Unremarkable. Vasculature: There is opacification of the aorta and the aorta is normal in size. There is opacification of the SMV and SMA. Lymph nodes: There is no evidence of lymphadenopathy. IMPRESSION: 1. No evidence of bowel obstruction. 2. No evidence of inflammation. 3. 2 CM follicular cyst right ovary. Electronically signed by: Blake Cuba On 09/13/2018 23:51:00 PM
[2018-09-14] MEDS ORDERED: FLUO20CA19 PO (00:34)
[2018-09-14] MEDS ORDERED: METO5TAB2 PO (00:34)
[2018-09-14] MEDS: D5W/0.9% SODIUM CHLORIDE 1,000 ML IV SCH ×2 (02:24→13:30)
[2018-09-14] MEDS: FLUoxetine 20 MG CAP PO SCH ×2 (02:25→20:05)
[2018-09-14] MEDS: METOCLOPRAMIDE INJ 10MG/2ML VIAL (J2765) IV PRN ×2 (03:59→17:06)
[2018-09-14] MEDS: HEPARIN SOD (PORCINE) 5000 UNITS/ML VIAL SC SCH ×3 (05:47→20:06)
--- NOTE | 2018-09-14 06:56 | HPE ---
DATE OF ADMISSION: 09/14/2018 CHIEF COMPLAINT: Patient presents with diffuse crampy abdominal pain and day and a half of multiple episodes of nausea and vomiting. 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 She presents to the emergency room with a day and a half of crampy abdominal pain, tingling in the fingers, multiple episodes of what she states is yellowish vomitus, unable to tolerate oral. She denies any seizures. She denies any cutaneous manifestations. She denies any chest pain, shortness of breath, fevers or chills. She admits to marijuana use. She is currently not on a menstrual cycle. She has started no new medication. The reason for the attack of her porphyria may possibly be secondary to marijuana use. CT was negative. Lipase was negative as well as normal LFTs, abdominal labs were negative. Creatinine also negative. PAST MEDICAL HISTORY: See history of present illness. PAST SURGICAL HISTORY: Cholecystectomy. ALLERGIES: No know drug allergies. HOME MEDICATIONS: - Xanax - Zoloft - Reglan SOCIAL HISTORY: She denies alcohol or tobacco use. She admits to elicit drug use. States she smokes marijuana yesterday. FAMILY HISTORY: Noncontributory. REVIEW OF SYSTEMS: A 12 point review of system was completed all of which were negative except those listed in the history of present illness. The patient is somewhat noncompliant with the exam stating all her information is on the records. VITALS ON ADMISSION: Temperature 98.2, pulse 81, respirations 18, blood pressure 132/72, sating 98% on room air. PHYSICAL EXAMINATION: General: She is in mild distress secondary to abdominal discomfort. Head is normocephalic, atraumatic. Lungs: Clear to auscultation. Cardiovascular: Regular rate and rhythm. Normal S1, S2. Neck is supple. No jugular venous pulse. Extremities: No pitting edema or calf tenderness. Abdomen is soft, no rebound or guarding. Positive bowel sounds. Neurological exam: She appears to be alert and oriented times three. No focal deficit. LABS AND IMAGING DONE IN THE EMERGENCY ROOM: White count 15, hemoglobin and hematocrit 14/43, platelet count 360. Chemistries: BUN and creatinine of 14/0.75, sodium within normal limits. Urine porphyrobilinogen, uroporphyrin, coproporphyrins, and ALA sent, pending. CT of the abdomen and pelvis shows no evidence of bowel obstruction. No evidence of inflammation. ASSESSMENT AND PLAN: Possible flare of porphyria, acute intermittent porphyria versus hereditary coproporphyria possibly secondary to marijuana use. There is no new medication. No acute infectious process going on. Will send a urinalysis to assess for any infectious etiology. Will send plasma porphyrin, urine porphobilinogen, urine coproporphyrin and ALA to be sent to assess. Will start the patient on D5 normal saline. Will do neuro checks to assess. Will place the patient on seizures precautions. Will check sodium and magnesium daily and replenish as needed. Will do hematologic consult in the a.m. Supportive deep venous thrombosis (DVT) prophylaxis, heparin subcutaneous. Gastroesophageal (GI) prophylaxis, not indicated. Will also place the patient on Reglan, Zofran as needed. MTDD
[2018-09-14 14:00] VITALS: BP 166/88
[2018-09-14] MEDS: ONDANSETRON 4MG/2ML VIAL (J2405) IV PRN ×2 (14:59→22:34)
--- NOTE | 2018-09-14 18:06 | CR.PDOC ---
General Date of Consultation: Sep 14, 2018 Attending Physician: Antonia White MD Consultation REASON FOR CONSULTATION/CHIEF COMPLAINT: . HISTORY OF PRESENT ILLNESS: . The patient is a 38 year old female with a PMHx of porphyria . The patinet had just gotten workd that her is going to be deployed to [place] . She complianed of n/v abdominal pain and discomfort for 2-3 days before seeking admission in the emergency room She has had a recent admission for the same complaint and had a GI evaluation as well . She went ot [place] to establish with a new PCP but came back to [place] to care care of her household things as well when she fell ill with the above symptoms . She has had some diarrhea one - two episodes non blood in the stool no tarry stool ALLERGIES: Please see below. HOME MEDICATIONS: Please see below. PAST MEDICAL HISTORY: 1. [ ]. 2. . Porphyria , type unknown possible variagate PAST SURGICAL HISTORY: 1. 2. FAMILY HISTORY: Father: Mother: Siblings: Children: Hereditary Diseases: Unexpected deaths due to medical reasons: SOCIAL HISTORY: Marital status and/or living arrangements: [ ] Children: [1] Employment: Tobacco use:[no ] ETOH: Illicit drug use: [no] IV drug use: [no] Other relevant social factors: REVIEW OF SYSTEMS: CONSTITUTIONAL: . HEENT: . CARDIOVASCULAR: [generalized fatigeu + headache dull no visual loss , neg for seizures ]. RESPIRATORY: neg. GENITOURINARY:beg [neg no duysuri a]. MUSCULOSKELETAL: . GASTROINTESTINAL: [diarrhea abdominal opain diffuse no loclization no relief with diarrhea ]. SKIN: [no rashes ]. NEUROLOGICAL: [no seizures ]. PSYCHIATRIC: [anxiety that worsens with being left alone with no support with the baby ]. ENDOCRINE: . HEMATOLOGIC/LYMPHATIC: [no rashes ]. ALLERGIC/IMMUNOLOGIC: . PHYSICAL EXAMINATION: VITAL SIGNS: Please see below. GENERAL APPEARANCE: [tired , sweaty ]. HEENT: [NC AT PErrl eomi sclera iw white non icteric ]. RESPIRATORY: [no SOB no wheeze ]. CARDIOVASCULAR: [S1 S2 appreciated no murmurs ]. ABDOMEN: [soft diffuse tnderness no ascites no rebound ]. EXTREMITIES: [no cce ]. NEUROLOGICAL: [intact no lesions noted ]. PSYCHIATRIC: [anxious ]. LABORATORY DATA: Please see below. ASSESSMENT/PLAN: 1. Hx of prophyria . 2. . hx of persistnet n/v with no etiology imprvoed with IV hydration with D5 and D 10 Plam support with the D5 for now Hematin only if her symtoms worsen , + labs for increase in urinary Coproporlhyrins or porpohyrobilinogens if labs are indicative of Porphyria , type her disease May give 250 cc D10 as well to assees for alleviation of symptpms Vital Signs/I&O Vital Signs Date Time Temp Pulse Resp B/P (MAP) Pulse Ox O2 Delivery O2 Flow Rate FiO2 09/14/18 14:00 99.8 81 18 166/88 (114) 97 09/14/18 13:06 Room Air Laboratory Data Labs 24H Laboratory Tests 2 09/13/18 19:48: Immature Granulocyte % (Auto) 0.5, White Blood Count 15.3H, Red Blood Count 4.46, Hemoglobin 14.8, Hematocrit 43.4, Mean Corpuscular Volume 97.3H, Mean Corpuscular Hemoglobin 33.2H, Mean Corpuscular Hemoglobin Concent 34.1, Red Cell Distribution Width 12.5, Platelet Count 360, Neutrophils (%) (Auto) 85.7H, Lymphocytes (%) (Auto) 10.2L, Monocytes (%) (Auto) 3.1, Eosinophils (%) (Auto) 0.1, Basophils (%) (Auto) 0.4, Neutrophils # (Auto) 13.1H, Lymphocytes # (Auto) 1.6, Monocytes # (Auto) 0.5, Eosinophils # (Auto) 0.0, Basophils # (Auto) 0.1, Nucleated Red Blood Cells % (auto) 0.0, Anion Gap 13, Glomerular Filtration Rate > 60.0, Calcium Level 9.3, Aspartate Amino Transf (AST/SGOT) 18, Alanine Aminotransferase (ALT/SGPT) 24, Alkaline Phosphatase 55, Total Bilirubin 0.7, Direct Bilirubin 0.2, Total Protein 7.5, Albumin 4.2, Albumin/Globulin Ratio 1.27, Lipase 221, Human Chorionic Gonadotropin, Qual NEGATIVE 09/13/18 21:43: 09/14/18 07:20: Magnesium Level 2.0 CBC/BMP Laboratory Tests 09/13/18 19:48 Red Blood Count 4.46, Mean Corpuscular Volume 97.3 H, Mean Corpuscular Hemoglobin 33.2 H, Mean Corpuscular Hemoglobin Concent 34.1, Red Cell Distribution Width 12.5, Neutrophils (%) (Auto) 85.7 H, Lymphocytes (%) (Auto) 10.2 L, Monocytes (%) (Auto) 3.1, Eosinophils (%) (Auto) 0.1, Basophils (%) (Auto) 0.4, Neutrophils # (Auto) 13.1 H, Lymphocytes # (Auto) 1.6, Monocytes # (Auto) 0.5, Eosinophils # (Auto) 0.0, Basophils # (Auto) 0.1 Allergies Coded Allergies: No Known Allergies (Unverified , 07/31/18) Home Medications Scheduled Fluoxetine Hcl (Fluoxetine HCl) 20 Mg Cap, 20 MG PO QHS, (Reported) Scheduled PRN Alprazolam (Alprazolam) 0.5 Mg Tab, 0.5 MG PO TID PRN for ANXIETY, (Reported) Metoclopramide HCl (Metoclopramide HCl) 5 Mg Tab, 5 MG PO TID PRN for NAUSEA, (Reported) Antonia White MD Sep 14, 2018 18:05
--- NOTE | 2018-09-14 20:44 | IPNPDOC ---
Text Note Date of Service The patient was seen on 09/14/18. NOTE S: pt examined at bedside in ER. Curled up in bed, states she still feels pablito seous. Has had n/v and abd cramping for past 2 days. No hematemesis, melena, or hematochezia. States "I get like this every time my porphyria flares." PE: GENERAL: Resting in bed, NAD, A&Ox3 HEENT: NCAT, EOMI. Dry mucous membranes NECK: Supple. No JVD CARDIAC: Regular rate and rhythm. No audible murmurs, clicks, gallops. LUNGS: Equal chest rise bilaterally. No w/r/r ABDOMEN: Soft, NT, ND. Hypoactive bowel sounds. No guarding, rebound, rigidity. No masses or hepatomegaly EXTREMITIES: 2+ radial pulses b/l. No edema, c/c SKIN: No visible lesions or ulcerations A/P: n/v likely 2/2 porphyria per pt, has had multiple similar cyclical episodes over past 10 yrs afebrile. Imaging neg on admission. Continue supportive care and D5NS. Consider switching to D10NS if no improvement. Glucose loading has helped in past porphyria labs pending. We do not have other outside records to assist with specifying the type of porphyria that she has been diagnosed with pt normally follows with Dr. White, who has been consulted. Appreciate input. Recommends continuing IVF and consider Hematin continue neurochecks & seizure precautions. Hemodynamically stable leukocytosis likely 2/2 acutely ill state. Afebrile and otherwise stable monitor and tx underlying cause idiopathic gastroparesis etiology unclear. Diagnosed last admission 08/05 gastric emptying study. EGD at that point was negative is due to f/u with Dr. Ron continue Reglan mood disorder continue xanax prn & fluoxetine DVT ppx: heparin sc DISPO: pending clinical improvement VS,Fishbone, I+O VS, Fishbone, I+O Laboratory Tests 09/13/18 19:48 Red Blood Count 4.46, Mean Corpuscular Volume 97.3 H, Mean Corpuscular Hemoglobin 33.2 H, Mean Corpuscular Hemoglobin Concent 34.1, Red Cell Distribution Width 12.5, Neutrophils (%) (Auto) 85.7 H, Lymphocytes (%) (Auto) 10.2 L, Monocytes (%) (Auto) 3.1, Eosinophils (%) (Auto) 0.1, Basophils (%) (Auto) 0.4, Neutrophils # (Auto) 13.1 H, Lymphocytes # (Auto) 1.6, Monocytes # (Auto) 0.5, Eosinophils # (Auto) 0.0, Basophils # (Auto) 0.1 Vital Signs Date Time Temp Pulse Resp B/P (MAP) Pulse Ox O2 Delivery O2 Flow Rate FiO2 09/14/18 14:00 99.8 81 18 166/88 (114) 97 09/14/18 13:06 Room Air GME ATTESTATION GME ATTESTATION My faculty preceptor for this patient encounter was physically present during the encounter and was fully available. All aspects of the patient interview, examination, medical decision making process, and medical care plan development were reviewed and approved by the faculty preceptor. The faculty preceptor is aware and concurs with the plan as stated in the body of this note and will attest to such by his/her cosignature. ROSA RICHARD DO Sep 14, 2018 19:30
[2018-09-14 22:00] VITALS: BP 159/89
[2018-09-14] MEDS: ALPRAZolam 0.5 MG TAB PO PRN (22:34)
[2018-09-15] MEDS: D5W/0.9% SODIUM CHLORIDE 1,000 ML IV SCH ×3 (00:05→18:17)
[2018-09-15] MEDS: METOCLOPRAMIDE INJ 10MG/2ML VIAL (J2765) IV PRN ×2 (00:34→08:42)
[2018-09-15] MEDS: HEPARIN SOD (PORCINE) 5000 UNITS/ML VIAL SC SCH ×3 (05:37→21:19)
[2018-09-15] MEDS: ONDANSETRON 4MG/2ML VIAL (J2405) IV PRN ×2 (05:37→14:20)
[2018-09-15 06:00] VITALS: BP 148/82
[2018-09-15 06:06] LABS: HEMATOCRIT 42.8 % (36.0-47.0); HEMOGLOBIN 14.4 g/dl (12.0-15.5); MEAN CORPUSCULAR HEMOGLOBIN 32.8 pg (27.0-33.0); MEAN CORPUSCULAR HGB CONC 33.6 g/dl (32.0-36.5); MEAN CORPUSCULAR VOLUME 97.5 fl (80.0-96.0); PLATELET COUNT, AUTOMATED 333 10^3/uL (150-450); RED BLOOD COUNT 4.39 10^6/uL (4.00-5.40)
[2018-09-15 06:35] LABS: BLOOD UREA NITROGEN 5 MG/DL (7-18); CALCIUM LEVEL 9.3 MG/DL (8.5-10.1); CARBON DIOXIDE LEVEL 24 MEQ/L (21-32); CHLORIDE LEVEL 107 MEQ/L (98-107); GLOMERULAR FILTRATION RATE > 60.0 (>60); GLUCOSE, FASTING 133 MG/DL (70-100); MAGNESIUM LEVEL 2.2 MG/DL (1.8-2.4); POTASSIUM SERUM 3.1 MEQ/L (3.5-5.1); SODIUM LEVEL 141 MEQ/L (136-145)
[2018-09-15] MEDS: ALPRAZolam 0.5 MG TAB PO PRN (06:46)
[2018-09-15] MEDS: KCL 10MEQ/100ML SWI (KRUN) 10 MEQ in APPROPRIATE DILUENT 1 EA IV SCH ×2 (08:42→11:38)
[2018-09-15] MEDS ORDERED: POTASSIUM CHLORIDE 10 MEQ SR TABLET PO ONE (09:00)
[2018-09-15] MEDS: LORazepam 2 MG/ML VIAL (J2060) IV PRN (12:10)
[2018-09-15] MEDS ORDERED: PROMETHAZINE INJ 25 MG/ML VIAL (J2550) IV PRN (12:15)
[2018-09-15 14:00] VITALS: BP 140/85
[2018-09-15 14:45] LABS: BLOOD UREA NITROGEN 5 MG/DL (7-18); CALCIUM LEVEL 8.8 MG/DL (8.5-10.1); CARBON DIOXIDE LEVEL 25 MEQ/L (21-32); CHLORIDE LEVEL 105 MEQ/L (98-107); GLOMERULAR FILTRATION RATE > 60.0 (>60); GLUCOSE, FASTING 111 MG/DL (70-100); POTASSIUM SERUM 3.7 MEQ/L (3.5-5.1); SODIUM LEVEL 138 MEQ/L (136-145)
--- NOTE | 2018-09-15 19:58 | IPN ---
DATE: 09/15/2018 SUBJECTIVE: The patient is seen and examined in the room with her . Yesterday, the patient continued to have a complaint of significant nausea and vomiting. The patient does not feel Zofran is working. She spit up most of her medications. The patient complained about significant anxiety. OBJECTIVE: VITAL SIGNS: Temperature is 97.1, pulse is 87, respirations 20, blood pressure 148/82, pulse oximetry is 97% in room air. GENERAL: Anxious. No sign of acute distress. Alert and awake. HEENT: Normocephalic, atraumatic. Extraocular motor grossly intact. CARDIOVASCULAR: Positive S1, S2, regular. LUNGS: Clear to auscultation bilaterally. ABDOMEN: Soft, nontender. Bowel sounds present. EXTREMITIES: No edema. LABORATORY DATA: WBC 18, hemoglobin 14.4, hematocrit is 42.8, platelet count is 333. Sodium is 138, potassium 3.7, chloride 105, carbon dioxide 25, BUN 5, creatinine 0.5, GFR greater than 60, fasting glucose 111, calcium is 8.8, C-reactive protein is 0.33. ASSESSMENT AND PLAN: 1. Severe nausea, vomiting secondary to acute intermittent porphyria. I will continue to follow with urine study. Program Management Specialist, Dr. White, consulted. Per recommendation, the patient will continue on the D5 normal saline. The patient will be on IV Zofran as needed, Reglan as needed and Phenergan as needed for symptomatic control. If the patient continues to have worsening nausea and vomiting, will consider switching the D5 to D10. 2. Hypokalemia secondary to severe nausea and vomiting. Supplement accordingly. 3. Leukocytosis. Suspect due to severe physical stress. Patient is afebrile. Continue to monitor the patient at this moment. 4. Mood disorder. On Prozac. The patient was taking Xanax at baseline; however, due to severe nausea and vomiting, will switch to IV Ativan. 5. Deep vein thrombosis (DVT) prophylaxis. On thromboembolism deterrent (ANTONIO) compression.
[2018-09-15] MEDS: FLUoxetine 20 MG CAP PO SCH (21:18)
[2018-09-15 22:00] VITALS: BP 132/81
[2018-09-16] MEDS: ONDANSETRON 4MG/2ML VIAL (J2405) IV PRN (00:49)
[2018-09-16] MEDS: METOCLOPRAMIDE INJ 10MG/2ML VIAL (J2765) IV PRN (04:23)
[2018-09-16] MEDS: D5W/0.9% SODIUM CHLORIDE 1,000 ML IV SCH (04:31)
[2018-09-16] MEDS: HEPARIN SOD (PORCINE) 5000 UNITS/ML VIAL SC SCH (05:39)
[2018-09-16 05:49] LABS: HEMATOCRIT 44.9 % (36.0-47.0); HEMOGLOBIN 15.3 g/dl (12.0-15.5); MEAN CORPUSCULAR HEMOGLOBIN 32.6 pg (27.0-33.0); MEAN CORPUSCULAR HGB CONC 34.1 g/dl (32.0-36.5); MEAN CORPUSCULAR VOLUME 95.5 fl (80.0-96.0); PLATELET COUNT, AUTOMATED 324 10^3/uL (150-450); WHITE BLOOD COUNT 12.3 10^3/uL (4.0-10.0)
[2018-09-16 06:00] VITALS: BP 147/82
[2018-09-16 06:06] LABS: BLOOD UREA NITROGEN 7 MG/DL (7-18); CALCIUM LEVEL 8.7 MG/DL (8.5-10.1); CARBON DIOXIDE LEVEL 26 MEQ/L (21-32); CHLORIDE LEVEL 105 MEQ/L (98-107); GLOMERULAR FILTRATION RATE > 60.0 (>60); GLUCOSE, FASTING 121 MG/DL (70-100); MAGNESIUM LEVEL 2.1 MG/DL (1.8-2.4); POTASSIUM SERUM 3.2 MEQ/L (3.5-5.1); SODIUM LEVEL 140 MEQ/L (136-145)
[2018-09-16] MEDS ORDERED: POTASSIUM CHLORIDE 10 MEQ SR TABLET PO ONE ×2 (08:00→17:00)
[2018-09-16] MEDS: KCL 10MEQ/100ML SWI (KRUN) 10 MEQ in APPROPRIATE DILUENT 1 EA IV SCH ×3 (08:17→16:02)
[2018-09-16 08:22] LABS: PHOSPHORUS LEVEL 2.3 MG/DL (2.5-4.9)
[2018-09-16 09:48] LABS: AMORPHOUS SEDIMENT MODERATE (NEGATIVE); APPEARANCE, URINE CLOUDY (CLEAR); BACTERIA, URINE AUTO 1+ (NEGATIVE); BILIRUBIN, URINE AUTO NEGATIVE (NEGATIVE); BLOOD, URINE BLOOD 1+ (NEGATIVE); COLOR, URINE YELLOW (YELLOW); GLUCOSE, URINE (UA) AUTO NEGATIVE (NEGATIVE); KETONE, URINE AUTO NEGATIVE (NEGATIVE); LEUKOCYTE ESTERASE, URINE AUTO NEGATIVE (NEGATIVE); MUCUS, URINE MODERATE (NEGATIVE); NITRITE, URINE AUTO NEGATIVE (NEGATIVE); PROTEIN, URINE AUTO 1+ mg/dL (NEGATIVE); RBC, URINE AUTO 7 /HPF (0-3); SPECIFIC GRAVITY URINE AUTO 1.016 (1.002-1.035); SQUAMOUS EPITHELIAL CELL UR AU 3 /HPF (0-6); WBC, URINE AUTO 3 /HPF (0-3)
[2018-09-16] MEDS: LORazepam 2 MG/ML VIAL (J2060) IV PRN (09:50)
[2018-09-16 14:00] VITALS: BP 172/102
[2018-09-16] MEDS ORDERED: REGL10TA6 PO (19:00)
[2018-09-16] MEDS ORDERED: ZOFR4TAB16 PO (19:00)
[2018-09-16] MEDS ORDERED: K-TA10TA2 PO (19:00)
--- NOTE | 2018-09-16 19:06 | DS.PDOC ---
Discharge Summary General Date of Admission Sep 14, 2018 at 02:05 Date of Discharge 09/16/18 Attending Physician: HANK HAMMOND DO Specialist/Consultants Involve: Antonia White MD Discharge Summary PROCEDURES PERFORMED DURING STAY: [None]. ADMITTING DIAGNOSES: 1. nausea, vomiting DISCHARGE DIAGNOSES: 1. n/v likely 2/2 acute intermittent porphyria flare 2. leukocytosis 2/2 acutely ill state 3. Hypokalemia 2/2 vomiting idiopathic gastroparesis mood disorder COMPLICATIONS/CHIEF COMPLAINT: Intractable Vomiting. HISTORY OF PRESENT ILLNESS: 38 yo F presented to ER for n/v for the past 2 days, stating she had similar episode about 1-2 months ago, for which she was also hospitalized and improved with glucose loading. No blood in vomit. No f/c or changes in bowels. She continued to had poor po intake and was admitted. HOSPITAL COURSE: She was given supportive care and started on D5NS. Pt stated she had multiple similar cyclical episodes over past 10 yrs. She was afebrile and imaging neg on admission. Has hypokalemia from vomiting, and was supplemented. Her Oncologist Dr. White was consulted and recommended plan as above, and to consider switching to D10NS if no improvement. Glucose loading has helped in past, and helped pt's symptom improve during this stay as well. Nausea and vomiting began to improve and she requested to go home, but did not believe she was well enough. They discussed it with each other and our hospital team, and agreed to advance her diet and see if she tolerated it well, which she did. Both pt and her were content to go home. All questions answered. At time of discharge, porphyria labs still pending. Pt was educated on results and to stay hydrated and return to ER for emergency. Long-term Hematin was recommended, but our hospital does not carry, and pt did indeed improve without it. DISCHARGE MEDICATIONS: Please see below. ALLERGIES: Please see below. PHYSICAL EXAMINATION ON DISCHARGE: VITAL SIGNS: Please see below. GENERAL: Resting in bed, NAD, A&Ox3 HEENT: NCAT, EOMI. Dry mucous membranes NECK: Supple. No JVD CARDIAC: Regular rate and rhythm. No audible murmurs, clicks, gallops. LUNGS: Equal chest rise bilaterally. No w/r/r ABDOMEN: Soft, NT, ND. Hypoactive bowel sounds. No guarding, rebound, rigidity. No masses or hepatomegaly EXTREMITIES: 2+ radial pulses b/l. No edema, c/c SKIN: No visible lesions or ulcerations LABORATORY DATA: Please see below. IMAGIN09/13/18 CT abd/pelvis: 1. No evidence of bowel obstruction. 2. No evidence of inflammation. 3. 2 CM follicular cyst right ovary. PROGNOSIS: good ACTIVITY: [As tolerated]. DIET: as tolerated, stay hydrated DISPOSITION: Home, Self-Care. DISCHARGE INSTRUCTIONS: 1. F/U with PCP w/i 1 week, with Oncologist Dr. White within 2 weeks 2. Return to ER for emergency DISCHARGE CONDITION: [Stable]. TIME SPENT ON DISCHARGE: Greater than 35 minutes. Vital Signs/I&Os Vital Signs Date Time Temp Pulse Resp B/P (MAP) Pulse Ox O2 Delivery O2 Flow Rate FiO2 09/16/18 14:00 97.6 80 17 172/102 (125) 98 09/14/18 13:06 Room Air I&O- Last 24 Hours up to 6 AM 09/16/18 06:00 Intake Total 3015 ml Output Total 3775 ml Balance -760 ml Laboratory Data Labs 24H Laboratory Tests 2 09/16/18 05:25: Nucleated Red Blood Cells % (auto) 0.0, Anion Gap 9, Glomerular Filtration Rate > 60.0, Blood Urea Nitrogen 7, Creatinine 0.70, Sodium Level 140, Potassium Level 3.2L, Chloride Level 105, Carbon Dioxide Level 26, Calcium Level 8.7, Phosphorus Level 2.3L, Magnesium Level 2.1 09/16/18 09:20: Urine Appearance CLOUDYH, Urine Color YELLOW, Urine pH 8.0, Urine Specific [place] 1.016, Urine Protein 1+H, Urine Glucose (UA) NEGATIVE, Urine Ketones NEGATIVE, Urine Urobilinogen 2.0H, Urine Bilirubin NEGATIVE, Urine Leukocyte Esterase NEGATIVE, Urine Blood 1+H, Urine Nitrite NEGATIVE, Urine WBC (Auto) 3, Urine RBC (Auto) 7H, Urine Hyaline Casts (Auto) 0, Urine Bacteria (Auto) 1+H, Urine Squamous Epithelial Cells 3, Urine Amorphous Sediment MODERATEH, Urine Mucus (Auto) MODERATE, Urine Sperm (Auto) CBC/BMP Laboratory Tests 09/16/18 05:25 Red Blood Count 4.70, Mean Corpuscular Volume 95.5, Mean Corpuscular Hemoglobin 32.6, Mean Corpuscular Hemoglobin Concent 34.1, Red Cell Distribution Width 12.2, Calcium Level 8.7 Microbiology Microbiology 09/15/18 Blood Culture - Preliminary, Resulted No growth after 24 hours . All specim... Discharge Medications Scheduled Fluoxetine Hcl (Fluoxetine HCl) 20 Mg Cap, 20 MG PO QHS, (Reported) Scheduled PRN Alprazolam (Alprazolam) 0.5 Mg Tab, 0.5 MG PO TID PRN for ANXIETY, (Reported) Metoclopramide HCl (Metoclopramide HCl) 5 Mg Tab, 5 MG PO TID PRN for NAUSEA, (Reported) Allergies Coded Allergies: No Known Allergies (Unverified , 07/31/18) GME ATTESTATION GME ATTESTATION My faculty preceptor for this patient encounter was physically present during the encounter and was fully available. All aspects of the patient interview, examination, medical decision making process, and medical care plan development were reviewed and approved by the faculty preceptor. The faculty preceptor is aware and concurs with the plan as stated in the body of this note and will attest to such by his/her cosignature. ROSA RICHARD DO Sep 16, 2018 19:06
[2018-09-20 00:06] LABS: COPROPORPHYRIN I URINE 13 ug/L (0-15); COPROPORPHYRIN III URINE 23 ug/L (0-49); HEPTACARBOXYLPORPHYRIN URINE 2 ug/L (0-2); HEXACARBOXYLPORPHYRIN URINE <1 ug/L (0-1); PENTACARBOXYLPORPHYRIN URINE 1 ug/L (0-2); PORPHOBILINOGEN RANDOM URINE 0.8 mg/L (0.0-2.0); UROPORPHYRIN URINE 7 ug/L (0-20)
== END 2018-09-16 16:38 | disposition home or self-care (01) | DRG 642 ==
LOC: M ED 19:31 → M ED INP 09-14 02:05 → M MSPAV 09-14 13:14
PROVIDERS: ADMIT Internal Medicine; ATTEND Internal Medicine
DX: E80.21 Acute intermittent (hepatic) porphyria (principal); F12.10 Cannabis abuse, uncomplicated; F39 Unspecified mood [affective] disorder; K31.84 Gastroparesis; E87.6 Hypokalemia; Z90.49 Acquired absence of other specified parts of digestive tract; Z79.899 Other long term (current) drug therapy

== ENCOUNTER 2018-12-17 10:24 | Observation (INO) | payer OTHER ==
[~2018-12-17] VITALS: Ht 152.4 cm; Wt 61.0 kg
[~2018-12-17 10:24] MED LIST changes: +FLUO10CA8 PO; +FLUO20CA19 PO; +HYOS1TAB PO; +K-TA10TA2 PO; +METO5TAB2 PO; +PANT40TA3 PO; +RANI300C PO; +REGL10TA6 PO; +TRAZ-160 PO; +ZOFR4TAB16 PO
[2018-12-17] MEDS ORDERED: diphenhydrAMINE INJ 50MG/ML VIAL (J1200) IV ONE (11:15)
[2018-12-17] MEDS ORDERED: METOCLOPRAMIDE INJ 10MG/2ML VIAL (J2765) IV ONE (11:15)
[2018-12-17] MEDS ORDERED: NS 1,000 ML IV ONE ×2 (11:15→12:30)
[2018-12-17 11:19] LABS: BASO % 0.2 % (0.0-1.0); HEMATOCRIT 41.3 % (36.0-47.0); HEMOGLOBIN 14.7 g/dl (12.0-15.5); LYMPH # 0.8 10^3/uL (1.5-4.5); LYMPH % 6.6 % (24.0-44.0); MEAN CORPUSCULAR HEMOGLOBIN 33.3 pg (27.0-33.0); MEAN CORPUSCULAR HGB CONC 35.6 g/dl (32.0-36.5); MEAN CORPUSCULAR VOLUME 93.4 fl (80.0-96.0); MONO # 0.3 10^3/uL (0.0-0.8); MONO % 2.3 % (0.0-5.0); NEUTROPHILS # 11.3 10^3/uL (1.8-7.7); NEUTROPHILS % 90.3 % (36.0-66.0); PLATELET COUNT, AUTOMATED 357 10^3/uL (150-450); RED BLOOD COUNT 4.42 10^6/uL (4.00-5.40); WHITE BLOOD COUNT 12.5 10^3/uL (4.0-10.0)
[2018-12-17 11:45] LABS: ALBUMIN 4.1 GM/DL (3.2-5.2); ALT/SGPT 43 U/L (12-78); AMYLASE 128 U/L (25-115); BILIRUBIN,DIRECT 0.1 MG/DL (0.0-0.2); BILIRUBIN,TOTAL 0.6 MG/DL (0.2-1.0); BLOOD UREA NITROGEN 11 MG/DL (7-18); CALCIUM LEVEL 9.3 MG/DL (8.5-10.1); CARBON DIOXIDE LEVEL 18 MEQ/L (21-32); CHLORIDE LEVEL 103 MEQ/L (98-107); CK-MB VALUE MASS < 1.0 NG/ML (<3.6); CPK CREATINE PHOSPHOKINASE 67 U/L (26-192); CREATININE FOR GFR 0.85 MG/DL (0.55-1.30); GLOMERULAR FILTRATION RATE > 60.0 (>60); GLUCOSE, FASTING 183 MG/DL (70-100); LIPASE 208 U/L (73-393); MB/CK RELATIVE INDEX 1.49 (< OR =4); POTASSIUM SERUM 3.4 MEQ/L (3.5-5.1); SODIUM LEVEL 137 MEQ/L (136-145); TOTAL PROTEIN 8.4 GM/DL (6.4-8.2); TROPONIN I < 0.02 NG/ML (< 0.10)
[2018-12-17 11:46] LABS: HCG, SERUM QUALITATIVE NEGATIVE (NEGATIVE)
[2018-12-17 12:20] LABS: HEMOGLOBIN A1c 5.2 %
[2018-12-17] MEDS ORDERED: PROMETHAZINE INJ 25 MG/ML VIAL (J2550) IV ONE (13:00)
[2018-12-17] MEDS ORDERED: METOCLOPRAMIDE INJ 10MG/2ML VIAL (J2765) IV PRN (15:00)
[2018-12-17] MEDS ORDERED: ACETAMINOPHEN TAB 650MG DOSE (2X325MG) PO PRN (15:00)
[2018-12-17] MEDS ORDERED: ZOFR4TAB16 PO (15:02)
[2018-12-17] MEDS: ONDANSETRON 4MG/2ML VIAL (J2405) IV PRN (15:23)
[2018-12-17] MEDS ORDERED: LORazepam 2 MG/ML VIAL (J2060) IV PRN ×2 (15:30→15:45)
--- NOTE | 2018-12-17 15:48 | HPEPDOC ---
General Date of Admission Dec 17, 2018 at 14:50 Date of Service: Dec 17, 2018 Chief Complaint The patient is a 38-year-old female admitted with intractable Nausea, Vomiting, Porphyria. Source: Patient History of Present Illness The patient is a 38-year-old female who presents to the year with complaints of intractable nausea as well as vomiting ongoing since Tuesday. The patient has a history of porphyria and episodes of nausea and vomiting related to same. She also reports a previous history of gastroparesis. In addition, the patient also reports a history of smoking small amount of marijuana on a daily basis. This time, she reports her symptoms have been ongoing since Tuesday. Over 10 episodes of emesis dailynonbloodybilious in nature. Currently, at time of my radiation, the patient was still feeling quite nauseated despite treatment with Reglan, Benadryl and promethazine in the ER. She had a couple of episodes of emesis at the time of my examination. She reports she has not been able to keep anything down since Tuesday. Last bowel movement was on Tuesday. Denies any associated abdominal pain per se, but does report associated heartburn. No diarrhea. No dysuria. Patient reports that when she is vomiting, she has small amount of urine incontinence. Denies any headache. No change in her vision, no dysphagia, no chest pain. No new joint pains or skin rashes. Reports some fevers, chills and sweats. Patient reports that she has been trying to improve her glucose intake after she was advised to do so since the previous episodes seem to flareup one week after her menstrual periods. She reports, that despite the increased glucose intake, it does not seem to have helped and she still ended up with the nausea and vomiting - LMP was about one week ago. Given the persistent nausea and vomiting in the ER despite treatment with multiple medications as well as couple of rounds of IV fluids, admission was requested. Home Medications Scheduled Fluoxetine Hcl (Fluoxetine HCl) 10 Mg Capsule, 10 MG PO QHS, (Reported) Hyoscyamine Sulfate (Hyoscyamine Sulfate) 0.125 Mg Tab.rapdis, 0.125 MG PO QID, (Reported) Pantoprazole Sodium (Pantoprazole Sodium) 40 Mg Tablet.dr, 40 MG PO DAILY, (Reported) Ranitidine HCl (Ranitidine HCl) 300 Mg Capsule, 1 TAB PO QHS, (Reported) Trazodone HCl (Trazodone HCl) 50 Mg Tablet, 50 MG PO QHS, (Reported) Scheduled PRN Alprazolam (Alprazolam) 0.5 Mg Tab, 0.5 MG PO TID PRN for ANXIETY, (Reported) Ondansetron HCl (Zofran) 4 Mg Tablet, 4 MG PO TID PRN for NAUSEA OR VOMITING, (Reported) Allergies Coded Allergies: No Known Allergies (Unverified , 07/31/18) Past Medical History Medical History Porphyria, gastroparesis, marijuana use Surgical History Cholecystectomy Family History Momskin cancer, Auntpancreatic cancer, unclecolon cancer 2 Social History * Smoker: other (has been smoking about 1 pack per week for 24 yearscurrently she reports she is trying to quit and does not smoke as much. She refuses nicotine patch. ) Alcohol: Denies Drugs: marijuana, other (smokes small amount of marijuana daily to stimulate appetite per patient) A-FIB/CHADSVASC A-FIB History Current/History of A-Fib/PAF?: No Review of Systems Other systems Negative for 10 systems except as noted under history of present illness Physical Examination General Exam: Positive: Alert, Cooperative, Moderate Distress (patient seemed to have significant nausea, had a couple of episodes of emesis at the time of my evaluation and seemed to be in distress secondary to the severe nausea.) Eye Exam: Positive: PERRLA ENT Exam: Positive: Mucous membr. moist/pink Chest Exam: Positive: Clear to auscultation, Normal air movement; Negative: Rales, Rhonchi, Wheezing Heart Exam: Positive: Tachycardic, Regular Rhythm, Normal S1, Normal S2; Negative: Gallops, Murmurs, Rubs Abdomen Exam: Positive: BS Hypoactive, Soft, Other (minimal tendernessno guarding or rigidity.) Neuro Exam: Positive: Other (awake, alert, answering questions appropriately and moving all 4 extremities) Vital Signs Vital Signs Date Time Temp Pulse Resp B/P (MAP) Pulse Ox O2 Delivery O2 Flow Rate FiO2 12/17/18 12:03 99.5 100 17 156/67 (96) 99 Room Air Laboratory Data Labs 24H Laboratory Tests 2 12/17/18 11:06: Immature Granulocyte % (Auto) 0.6, White Blood Count 12.5H, Red Blood Count 4.42, Hemoglobin 14.7, Hematocrit 41.3, Mean Corpuscular Volume 93.4, Mean Corpuscular Hemoglobin 33.3H, Mean Corpuscular Hemoglobin Concent 35.6, Red Cell Distribution Width 13.0, Platelet Count 357, Neutrophils (%) (Auto) 90.3H, Lymphocytes (%) (Auto) 6.6L, Monocytes (%) (Auto) 2.3, Eosinophils (%) (Auto) 0.0, Basophils (%) (Auto) 0.2, Neutrophils # (Auto) 11.3H, Lymphocytes # (Auto) 0.8L, Monocytes # (Auto) 0.3, Eosinophils # (Auto) 0.0, Basophils # (Auto) 0.0, Nucleated Red Blood Cells % (auto) 0.0, Anion Gap 16, Glomerular Filtration Rate > 60.0, Estimated Mean Plasma Glucose 103, Hemoglobin A1c 5.2, Calcium Level 9.3, Aspartate Amino Transf (AST/SGOT) 17, Alanine Aminotransferase (ALT/SGPT) 43, Alkaline Phosphatase 53, Total Bilirubin 0.6, Direct Bilirubin 0.1, Total Creatine Kinase 67, Creatine Kinase MB < 1.0, Creatine Kinase MB Relative Index 1.49, Troponin I < 0.02, Total Protein 8.4H, Albumin 4.1, Albumin/Globulin Ratio 0.95L, Amylase Level 128H, Lipase 208, Human Chorionic Gonadotropin, Qual NEGATIVE 12/17/18 12:56: Urine Color YELLOW, Urine Appearance HAZY, Urine pH 7.0, Urine Specific [place] 1.018, Urine Protein 1+H, Urine Glucose (UA) 2+H, Urine Ketones 2+H, Urine Blood NEGATIVE, Urine Nitrite NEGATIVE, Urine Bilirubin NEGATIVE, Urine Urobilinogen 0.2, Urine Leukocyte Esterase NEGATIVE, Urine WBC (Auto) 2, Urine RBC (Auto) 13H, Urine Hyaline Casts (Auto) 0, Urine Bacteria (Auto) NEGATIVE, Urine Squamous Epithelial Cells 4, Urine Mucus (Auto) SMALL, Urine Sperm (Auto) CBC/BMP Laboratory Tests 12/17/18 11:06 Red Blood Count 4.42, Mean Corpuscular Volume 93.4, Mean Corpuscular Hemoglobin 33.3 H, Mean Corpuscular Hemoglobin Concent 35.6, Red Cell Distribution Width 13.0, Neutrophils (%) (Auto) 90.3 H, Lymphocytes (%) (Auto) 6.6 L, Monocytes (%) (Auto) 2.3, Eosinophils (%) (Auto) 0.0, Basophils (%) (Auto) 0.2, Neutrophils # (Auto) 11.3 H, Lymphocytes # (Auto) 0.8 L, Monocytes # (Auto) 0.3, Eosinophils # (Auto) 0.0, Basophils # (Auto) 0.0 Assessment/Plan 12-lead EKG done in the ER was personally reviewedappears to show sinus rhythm with sinus arrhythmia, heart rate 99, possible left atrial enlargement Intractable nausea and vomiting possibly secondary to porphyria flare: -Nothing by mouth, D5 NS with 40 KCl @ 100 mL per hour -prn Zofran, scheduled Reglan -Patient does report that hot showers seem to help with the symptomsshe may have a component of cyclical vomiting syndromeadvised patient regarding quitting marijuana smoking -At this time, patient has not spiked any feversif she does have a high-grade fever, we will send of blood cultures and she may benefit from imaging of her abdomen/pelvis. Otherwise, we will treat as her usual porphyria flare if she does not develop any clinically concerning symptoms. Hypokalemia: -Replete via IV fluids Gastroparesis: -IV Reglan Leukocytosis: -Suspect related to dehydration from persistent vomiting and possibly some reactive leukocytosis -No obvious infection noted -Recheck in a.m. -UA was negative, lungs are clear Anxiety: -Hold Xanax -prn low-dose IV Ativan Nicotine abuse/cigarette smoking: -Patient has been counseled regarding quitting smoking -She does not wish to use a nicotine patch Daily marijuana use: -Counseled regarding quitting same GI/DVT prophylaxis: -PPI/famotidine, SCDs CODE STATUS: -Full code per my discussion with the patient Disposition: -Admit as an observation status to the hospital. Anticipated length of stay less than 2 midnights. Anticipate eventual discharge home once nausea/vomiting improves and able to tolerate oral intake. Plan / VTE VTE Prophylaxis Ordered?: Yes JAKI GRIFFITH MD Dec 17, 2018 15:48
[2018-12-17 16:30] VITALS: BP 140/92
[2018-12-17] MEDS: PANTOPRAZOLE 40MG INJ (PROTONIX) (C9113) IV SCH (16:32)
[2018-12-17] MEDS: KCL 40MEQ IN D5/NS 1000ML 1,000 ML IV SCH (16:43)
[2018-12-17] MEDS: FAMOTIDINE IV BAG 20 MG in APPROPRIATE DILUENT 1 EA IV SCH (18:25)
--- NOTE | 2018-12-17 19:31 | ECGEPIP ---
[facility] - ED Test Date: 2018-12-17 Pat Name: MICHAEL BRAVO Department: Room: 0103 Gender: Female Strategic Marketing Associate: sotero : [id number] Requested By: LUIZA Whyte PA-C Order Number: [id number] Reading MD: Deborah Dubois Measurements Intervals [place] Rate: 99 P: 73 TN: 137 QRS: 71 QRSD: 93 T: 72 QT: 365 QTc: 468 Interpretive Statements SINUS RHYTHM WITH MARKED SINUS ARRHYTHMIA POSSIBLE LEFT ATRIAL ENLARGEMENT PROLONGED QTC NONSPECIFIC ST T WAVE CHANGES NO OLD ECG FOR COMPARISON Electronically Signed on 12-17-2018 19:31:00 EDT by Deborah Dubois
[2018-12-17] MEDS: METOCLOPRAMIDE INJ 10MG/2ML VIAL (J2765) IV SCH (20:09)
[2018-12-17 20:14] VITALS: BP 160/90
[2018-12-18] MEDS: ONDANSETRON 4MG/2ML VIAL (J2405) IV PRN (00:37)
[2018-12-18] MEDS: KCL 40MEQ IN D5/NS 1000ML 1,000 ML IV SCH (02:30)
[2018-12-18 04:00] VITALS: BP 198/110
[2018-12-18] MEDS: METOCLOPRAMIDE INJ 10MG/2ML VIAL (J2765) IV SCH ×2 (04:15→12:10)
[2018-12-18 04:20] VITALS: BP 198/105
[2018-12-18] MEDS ORDERED: LORazepam 2 MG/ML VIAL (J2060) IV STA (04:42)
[2018-12-18] MEDS: FAMOTIDINE IV BAG 20 MG in APPROPRIATE DILUENT 1 EA IV SCH ×2 (05:47→18:00)
[2018-12-18 06:23] VITALS: BP 180/100
[2018-12-18 06:54] LABS: HEMATOCRIT 42.4 % (36.0-47.0); HEMOGLOBIN 14.8 g/dl (12.0-15.5); MEAN CORPUSCULAR HEMOGLOBIN 33.6 pg (27.0-33.0); MEAN CORPUSCULAR HGB CONC 34.9 g/dl (32.0-36.5); MEAN CORPUSCULAR VOLUME 96.1 fl (80.0-96.0); PLATELET COUNT, AUTOMATED 322 10^3/uL (150-450); RED BLOOD COUNT 4.41 10^6/uL (4.00-5.40); WHITE BLOOD COUNT 13.8 10^3/uL (4.0-10.0)
[2018-12-18 07:21] LABS: ALBUMIN 3.9 GM/DL (3.2-5.2); ALT/SGPT 36 U/L (12-78); BILIRUBIN,TOTAL 0.9 MG/DL (0.2-1.0); BLOOD UREA NITROGEN 5 MG/DL (7-18); CALCIUM LEVEL 9.2 MG/DL (8.5-10.1); CARBON DIOXIDE LEVEL 22 MEQ/L (21-32); CHLORIDE LEVEL 108 MEQ/L (98-107); CREATININE FOR GFR 0.63 MG/DL (0.55-1.30); GLOMERULAR FILTRATION RATE > 60.0 (>60); GLUCOSE, FASTING 120 MG/DL (70-100); MAGNESIUM LEVEL 2.2 MG/DL (1.8-2.4); POTASSIUM SERUM 3.6 MEQ/L (3.5-5.1); SODIUM LEVEL 140 MEQ/L (136-145); TOTAL PROTEIN 7.3 GM/DL (6.4-8.2)
[2018-12-18 09:00] VITALS: BP 136/85
[2018-12-18] MEDS: PANTOPRAZOLE 40MG INJ (PROTONIX) (C9113) IV SCH (15:21)
--- NOTE | 2018-12-18 15:22 | DS.PDOC ---
Discharge Summary General Date of Admission Dec 17, 2018 at 14:50 Date of Discharge 12/18/2018 Discharge Summary PROCEDURES PERFORMED DURING STAY: [None]. ADMITTING DIAGNOSES / DISCHARGE DIAGNOSES: Intractable nausea and vomiting possibly secondary to porphyria flare: Hypokalemia: Gastroparesis: Leukocytosis: Anxiety: Nicotine abuse/cigarette smoking: Daily marijuana use: GI/DVT prophylaxis: COMPLICATIONS/CHIEF COMPLAINT: Nausea and vomiting HISTORY OF PRESENT ILLNESS: Patient is a 38-year-old female with a past medical history of porphyria, gastroparesis, marijuana use, who presented to the emergency room with complaints of intractable nausea and vomiting. Vision is reported several episodes of vomiting greater than 10 without any blood. She denied any abdominal pain. Has not expense any fevers as an outpatient. Patient was admitted to hospitalist service for further evaluation and treatment. HOSPITAL COURSE: Intractable nausea and vomiting possibly secondary to porphyria flare: - Clinically has had significant resolution of nausea and vomiting - Physical is non-revealing - Remains afebrile - Mild leukocytosis - Advised smoking cessation of marijuana and cigarette - c/w Zofran as needed s/p Hypokalemia: Gastroparesis: - c/w IV Reglan Leukocytosis - possibly 2/2 reactive leukocytosis; less likely 2/2 infectious etiology - No obvious infection noted - Remains afebrile - UA was negative Anxiety: - Hold Xanax - prn low-dose IV Ativan Nicotine abuse/cigarette smoking: - Patient has been counseled regarding quitting smoking - She does not wish to use a nicotine patch Daily marijuana use: - Counseled regarding quitting same GI/DVT prophylaxis: - PPI/famotidine, SCDs DISCHARGE MEDICATIONS: Please see below. ALLERGIES: Please see below. PHYSICAL EXAMINATION ON DISCHARGE: Vitals (See below) General: Lying in bed, no acute distress, comfortable, AAOx3 HEENT: NC, AT CVS: RRR, +S1S2 Lungs: Fair air entry b/l, -w/r/r Abdomen: Soft, ND, NT Extremities: - Edema, - Calf tenderness LABORATORY DATA: Please see below. ACTIVITY: [As tolerated]. DISCHARGE PLAN: Follow up with [facility] within 7 days Remain complaint with treatmetn plan and medications Return to the ER if you experience any problems DISPOSITION: Home DISCHARGE CONDITION: [Stable]. TIME SPENT ON DISCHARGE: 32 minutes Vital Signs/I&Os Vital Signs Date Time Temp Pulse Resp B/P (MAP) Pulse Ox O2 Delivery O2 Flow Rate FiO2 12/18/18 09:00 99.1 74 19 136/85 (102) 98 12/17/18 16:04 Room Air I&O- Last 24 Hours up to 6 AM 12/18/18 06:00 Intake Total 3360 ml Output Total 1500 ml Balance 1860 ml Laboratory Data Labs 24H Laboratory Tests 2 12/18/18 04:53: Bedside Glucose (Misc Panel) 129H 12/18/18 06:25: Nucleated Red Blood Cells % (auto) 0.0, Anion Gap 10, Glomerular Filtration Rate > 60.0, Blood Urea Nitrogen 5#L, Creatinine 0.63, Sodium Level 140, Potassium Level 3.6, Chloride Level 108H, Carbon Dioxide Level 22, Calcium Level 9.2, Aspartate Amino Transf (AST/SGOT) 16, Alanine Aminotransferase (ALT/SGPT) 36, Alkaline Phosphatase 46, Total Bilirubin 0.9, Total Protein 7.3, Albumin 3.9, Magnesium Level 2.2, Albumin/Globulin Ratio 1.15 CBC/BMP Laboratory Tests 12/18/18 06:25 Red Blood Count 4.41, Mean Corpuscular Volume 96.1 H, Mean Corpuscular Hemoglobin 33.6 H, Mean Corpuscular Hemoglobin Concent 34.9, Red Cell Distribution Width 13.2, Calcium Level 9.2, Aspartate Amino Transf (AST/SGOT) 16, Alanine Aminotransferase (ALT/SGPT) 36, Alkaline Phosphatase 46, Total Bilirubin 0.9, Total Protein 7.3, Albumin 3.9 FSBS Laboratory Tests Test 12/18/18 04:53 Range/Units Bedside Glucose (Misc Panel) 129 70-105 MG/DL Discharge Medications Scheduled Fluoxetine Hcl (Fluoxetine HCl) 10 Mg Capsule, 10 MG PO QHS, (Reported) Hyoscyamine Sulfate (Hyoscyamine Sulfate) 0.125 Mg Tab.rapdis, 0.125 MG PO QID, (Reported) Pantoprazole Sodium (Pantoprazole Sodium) 40 Mg Tablet.dr, 40 MG PO DAILY, (Reported) Ranitidine HCl (Ranitidine HCl) 300 Mg Capsule, 1 TAB PO QHS, (Reported) Trazodone HCl (Trazodone HCl) 50 Mg Tablet, 50 MG PO QHS, (Reported) Scheduled PRN Alprazolam (Alprazolam) 0.5 Mg Tab, 0.5 MG PO TID PRN for ANXIETY, (Reported) Ondansetron HCl (Zofran) 4 Mg Tablet, 4 MG PO TID PRN for NAUSEA OR VOMITING, (Reported) Allergies Coded Allergies: No Known Allergies (Unverified , 07/31/18) JONNA ANN MD Dec 18, 2018 15:22
[2018-12-18 16:00] VITALS: BP 149/87
== END 2018-12-18 19:30 | disposition home or self-care (01) ==
LOC: M ED 10:24 → M ED INP 14:50 → M PED 16:25
PROVIDERS: ADMIT Internal Medicine; ATTEND Internal Medicine
DX: R11.2 Nausea with vomiting, unspecified (principal); E80.20 Unspecified porphyria; E87.6 Hypokalemia; K31.84 Gastroparesis; D72.829 Elevated white blood cell count, unspecified; F41.9 Anxiety disorder, unspecified; F17.210 Nicotine dependence, cigarettes, uncomplicated; F12.10 Cannabis abuse, uncomplicated; Z79.899 Other long term (current) drug therapy
CPT/HCPCS: 36415; 80048; 80053; 80076; 81001; 82150; 82550; 82553; 83036; 83690; 83735; 84484; 84703; 85025; 85027; 93005; 96374; 96375; 96376; 99284; C9113; J1200; J2060; J2405; J2765